=== PATIENT | male | born 1930 | race Caucasian/White ===

== ENCOUNTER 2019-06-14 11:35 | Emergency (ER) | payer MEDICARE, BC ==
--- NOTE | 2019-06-14 12:20 | EDM.PDOC ---
ED HPI GENERAL MEDICAL PROBLEM - General Chief Complaint: Gastrointestinal Problem Stated Complaint: CONSTIPATION Time Seen by Provider: 06/14/19 12:23 Source of Information: Reports: Patient, Family History Limitations: Reports: No Limitations - History of Present Illness INITIAL COMMENTS - FREE TEXT/NARRATIVE: Has not had a BM in 3 days, and unable to urinate since last night. Complains of suprapubic and rectal pain. Denies N/V. Patient has had issues with constipation in the past, but has never been associated with urinary retention. Denies N/V. Takes no narcotic pain medication. Severity: Moderate - Related Data Allergies Allergy/AdvReac Type Severity Reaction Status Date / Time erythromycin base Allergy Nausea and Verified 05/09/13 19:36 [Erythromycin Base] Vomiting Home Meds: Home Meds Acetaminophen/Diphenhydramine [Tylenol Pm Ex-Strength Caplet] 1 each PO BEDTIME PRN 05/09/13 [History] Amantadine [Symmetrel] 100 mg PO BID 05/09/13 [History] Aspirin/Calcium Carbonate/Mag [Aspirin Buffered 325 mg Tab] 325 mg PO DAILY [History] Carbidopa/Levodopa [Sinemet Cr 25-100 mg] 1 each PO TID 05/09/13 [History] Cholecalciferol (Vitamin D3) [Vitamin D3] 5,000 unit PO DAILY 05/09/13 [History] Docusate Sodium [Colace] 100 mg PO DAILY 05/09/13 [History] Glucosam/Msm/Chond/Ymc941/Hyal [Fscmflfuzra-Xqfuffxcpay-BAO] 1 each PO BID 05/09 [History] Losartan/Hydrochlorothiazide [Losartan-HCTZ 100-25 MG] 1 each PO DAILY 05/09/13 [History] Melatonin/Pyridoxine HCl (B6) [Melatonin 5 mg Tablet] 1 each PO BEDTIME [History] Multivitamin [Multivitamins] 1 each PO DAILY 05/09/13 [History] Gamaliel-3/DHA/Epa/Fish Oil [Fish Oil Dr 500 mg Softgel] 1,000 mg PO DAILY [History] Omeprazole [Prilosec] 20 mg PO BID 05/09/13 [History] Tamsulosin [Flomax] 0.4 mg PO DAILY 05/09/13 [History] polyethylene glycoL 3350 [MiraLAX] 17 gm PO DAILY 05/09/13 [History] Isosorbide Mononitrate [Imdur] 30 mg PO DAILY #30 tab.er 05/10/13 [Rx] Metoprolol Succinate [Toprol XL] 12.5 mg PO DAILY #30 tab.sr.24h 05/10/13 [Rx] Nitroglycerin [Nitrostat] 0.4 mg SL Q5M PRN #1 bottle 05/10/13 [Rx] Past Medical History Cardiovascular History: Reports: CAD, Hypertension Gastrointestinal History: Reports: GERD Genitourinary History: Reports: BPH Neurological History: Reports: Parkinson's ED ROS GENERAL - Review of Systems Review Of Systems: Comprehensive ROS is negative, except as noted in HPI. ED EXAM, GENERAL - Physical Exam Exam: See Below Exam Limited By: No Limitations General Appearance: Alert, WD/WN, No Apparent Distress Nose: Normal Inspection Neck: Full Range of Motion Respiratory/Chest: No Respiratory Distress, Lungs Clear, Normal Breath Sounds Cardiovascular: Regular Rate, Rhythm, No Murmur GI/Abdominal: Normal Bowel Sounds, Soft, No Distention, Tender (suprapubic) Rectal (Males) Exam: Fecal Impaction Extremities: Normal Range of Motion Skin Exam: Warm, Dry, Intact Course - Vital Signs Text/Narrative:: Triage Vitals: T98.7, BP 133/77, HR 102, Sa02 99% RA - Orders/Labs/Meds Orders: Active Orders 24 hr Category Date Time Status Enema [RC] ASDIRECTED Care 06/14/19 12:32 Active Gauthier Catheter Insertion [Insert Urinary Catheter] [OM. Care 06/14/19 11:45 Ordered PC] Q24H Urinary Catheter Assessment [RC] QSHIFT Care 06/14/19 11:37 Active polyethylene glycoL 3350 [MiraLAX] Med 06/14/19 13:46 Once 17 gm PO ONETIME ONE Labs: Laboratory Tests 06/14/19 06/14/19 06/14/19 Range/Units 11:52 11:52 12:47 WBC 6.9 (4.5-12.0) X10-3/uL RBC 4.85 (4.30-5.75) x10(6)uL Hgb 15.0 (13.5-17.8) g/dL Hct 45.9 (30.0-51.3) % MCV 94.7 (80-96) fL MCH 31.0 (27.7-33.6) pg MCHC 32.8 (32.2-35.4) g/dL RDW 13.1 (11.5-15.5) % Plt Count 213 (125-369) X10(3)uL MPV 7.2 L (7.4-10.4) fL Neut % (Auto) 71.5 (46-82) % Lymph % (Auto) 22.5 (13-37) % [place] % (Auto) 4.0 (4-12) % Eos % (Auto) 1 (1.0-5.0) % Baso % (Auto) 1 (0-2) % Neut # (Auto) 4.9 (1.6-8.3) # Lymph # (Auto) 1.6 (0.6-5.0) # [place] # (Auto) 0.3 (0.0-1.3) # Eos # (Auto) 0.0 (0.0-0.8) # Baso # (Auto) 0.1 (0.0-0.2) # Sodium 144 (135-145) mmol/L Potassium 3.9 (3.5-5.3) mmol/L Chloride 103 (100-110) mmol/L Carbon Dioxide 28 (21-32) mmol/L BUN 19 H (7-18) mg/dL Creatinine 1.2 (0.70-1.30) mg/dL Est Cr Clr Drug Dosing TNP Estimated GFR (MDRD) 57 L (>60) BUN/Creatinine Ratio 15.8 (9-20) Glucose 147 H (80-116) mg/dL Calcium 9.4 (8.6-10.2) mg/dL Total Bilirubin 0.9 (0.1-1.3) mg/dL AST 18 (5-25) IU/L ALT 17 (12-36) U/L Alkaline Phosphatase 63 (56-112) IU/L Total Protein 7.8 (6.0-8.0) g/dL Albumin 4.3 (3.2-4.6) g/dL Globulin 3.5 g/dL Albumin/Globulin Ratio 1.2 Urine Color Yellow (YELLOW) Urine Appearance Clear (CLEAR) Urine pH 6.0 (5.0-6.5) Ur Specific [place] 1.010 (1.010-1.025) Urine Protein Negative (NEGATIVE) mg/dL Urine Glucose (UA) Normal (NORMAL) mg/dL Urine Ketones Negative (NEGATIVE) mg/dL Urine Occult Blood Negative (NEGATIVE) Urine Nitrite Negative (NEGATIVE) Urine Bilirubin Negative (NEGATIVE) Urine Urobilinogen Normal (NEGATIVE) mg/dL Ur Leukocyte Esterase Negative (NEGATIVE) Urine RBC 0-5 (0-5) Urine WBC 0-5 (0-5) Ur Squamous Epith Cells Rare (NS,R,O) Urine Bacteria Few H (NS) - Re-Assessments/Exams Free Text/Narrative Re-Assessment/Exam: 06/14/19 13:47 700 ml urine output after Gauthier catheter placed, patient reported resolution of abdominal pain. ED RN manually disimpacted rectal stool. Soap suds enema returned liquid. Patient reports significant improvement of symptoms. Urinary retention most likely secondary to stool impaction, will d/c Gauthier, give Miralax, and discharge home. Departure - Departure Time of Disposition: 13:49 Disposition: Home, Self-Care 01 Condition: Good Clinical Impression: Impacted stool in rectum, Urinary retention - Discharge Information *PRESCRIPTION DRUG MONITORING PROGRAM REVIEWED*: No *COPY OF PRESCRIPTION DRUG MONITORING REPORT IN PATIENT KIRAN: Not Applicable Instructions: Constipation, Adult, [id number], Acute Urinary Retention, Male Referrals: Jet Yeung MD [Primary Care Provider] - 3 Days Forms: ED Department Discharge Additional Instructions: Take OTC stool softeners daily. Increase fiber intake. Follow up with your primary physician in 2-3 days. Return to the ER if symptoms worsen. Sepsis Event Note - Focused Exam Date Exam was Performed: 06/14/19 Time Exam was Performed: 13:47 - My Orders Last 24 Hours: My Active Orders 06/14/19 11:37 Urinary Catheter Assessment [RC] QSHIFT 06/14/19 11:45 Gauthier Catheter Insertion [Insert Urinary Catheter] [OM.PC] Q24H 06/14/19 12:32 Enema [RC] ASDIRECTED 06/14/19 13:46 polyethylene glycoL 3350 [MiraLAX] 17 gm PO ONETIME ONE - Assessment/Plan Last 24 Hours: My Active Orders 06/14/19 11:37 Urinary Catheter Assessment [RC] QSHIFT 06/14/19 11:45 Gauthier Catheter Insertion [Insert Urinary Catheter] [OM.PC] Q24H 06/14/19 12:32 Enema [RC] ASDIRECTED 06/14/19 13:46 polyethylene glycoL 3350 [MiraLAX] 17 gm PO ONETIME ONE
[2019-06-14] MEDS ORDERED: Polyethylene Glycol 3350 Powder 17 GM Packet PO ONE (13:46)
== END 2019-06-14 14:40 | disposition home or self-care (01) ==
LOC: FB.ED 11:35
DX: K56.41 Fecal impaction (principal); R33.9 Retention of urine, unspecified; I25.10 Atherosclerotic heart disease of native coronary artery without angina pectoris; I10 Essential (primary) hypertension; K21.9 Gastro-esophageal reflux disease without esophagitis; G20 Parkinson's disease; Z79.82 Long term (current) use of aspirin; Z88.1 Allergy status to other antibiotic agents; Z79.899 Other long term (current) drug therapy
CPT/HCPCS: 36415; 51702; 80053; 81001; 85025; 99284; A9270

== ENCOUNTER 2019-07-01 11:39 | Inpatient (IN) | payer MEDICARE, BC ==
[2019-07-01] MEDS ORDERED: Ketorolac 30 MG/ML SDV IM ONE (12:02)
[2019-07-01] MEDS ORDERED: Acetaminophen 500 MG Tab PO ONE (12:02)
--- NOTE | 2019-07-01 13:30 | EDM.PDOC ---
ED HPI GENERAL MEDICAL PROBLEM - General Chief Complaint: Back Pain or Injury Stated Complaint: BACK PAIN,GENERAL WEAKNESS Time Seen by Provider: 07/01/19 11:40 Source of Information: Reports: Patient History Limitations: Reports: No Limitations - History of Present Illness INITIAL COMMENTS - FREE TEXT/NARRATIVE: Patient presented to the ED because he tripped and fell and landed on his lower back. There is no LOC after the fall . He c/o lower back pain,7/10 and is worse with movements. - Related Data Allergies Allergy/AdvReac Type Severity Reaction Status Date / Time erythromycin base Allergy Nausea and Verified 07/01/19 12:01 [Erythromycin Base] Vomiting Home Meds: Home Meds Amantadine [Symmetrel] 100 mg PO BID 05/09/13 [History] Carbidopa/Levodopa [Sinemet Cr 25-100 mg] 1 each PO TID 05/09/13 [History] Omeprazole [Prilosec] 20 mg PO BID 05/09/13 [History] Tamsulosin [Flomax] 0.4 mg PO DAILY 05/09/13 [History] Nitroglycerin [Nitrostat] 0.4 mg SL Q5M PRN #1 bottle 05/10/13 [Rx] Cetirizine [ZyrTEC] 10 mg PO DAILY 07/01/19 [History] Losartan Potassium 100 mg PO DAILY 07/01/19 [History] Magnesium 250 mg PO DAILY 07/01/19 [History] Melatonin 10 mg PO BEDTIME 07/01/19 [History] Past Medical History Cardiovascular History: Reports: CAD, Hypertension Gastrointestinal History: Reports: GERD Genitourinary History: Reports: BPH Neurological History: Reports: Parkinson's Social & Family History - Tobacco Use Smoking Status *Q: Former Smoker Used Tobacco, but Quit: Yes Month/Year Tobacco Last Used: 1979 - Caffeine Use Caffeine Use: Reports: None - Recreational Drug Use Recreational Drug Use: No ED ROS GENERAL - Review of Systems Review Of Systems: See Below Constitutional: Reports: No Symptoms HEENT: Reports: No Symptoms Respiratory: Reports: No Symptoms Cardiovascular: Reports: No Symptoms Endocrine: Reports: No Symptoms GI/Abdominal: Reports: No Symptoms : Reports: No Symptoms Musculoskeletal: Reports: No Symptoms Skin: Reports: No Symptoms Neurological: Reports: No Symptoms ED EXAM,LOWER BACK PAIN/INJURY - Physical Exam Exam: See Below Exam Limited By: No Limitations General Appearance: Alert, No Apparent Distress Ears: Normal External Exam, Normal Canal, Hearing Grossly Normal Nose: Normal Inspection, Normal Mucosa Throat/Mouth: Normal Inspection, Normal Lips Neck: Normal Inspection, Supple, Non-Tender, Full Range of Motion Respiratory/Chest: No Respiratory Distress, Lungs Clear Cardiovascular: Normal Peripheral Pulses, Regular Rate, Rhythm, No Edema, No Gallop, No JVD GI/Abdominal: Normal Bowel Sounds, Soft, Non-Tender Back Exam: Normal Inspection, Muscle Spasm, Paraspinal Tenderness Extremities: Normal Inspection, Other (tndersness over the lumbar spine with muscle spasm) Neurological: Alert, Normal Mood/Affect Course - Vital Signs Text/Narrative:: xray lumbar-neg toradol 30 mg IM tylenol 1000 mg po x1 We did try to ambulate patient on the hallway but he can only make a few steps Last Recorded V/S: Last Vital Signs Temp 36.9 C 07/01/19 11:40 Pulse 57 L 07/01/19 11:40 Resp 20 07/01/19 11:40 BP 151/80 H 07/01/19 11:40 Pulse Ox 98 07/01/19 11:40 - Orders/Labs/Meds Orders: Active Orders 24 hr Category Date Time Status Admission Status [Patient Status] [ADT] Routine ADT 07/01/19 13:49 Ordered Lumbar Spine 2 or 3V [CR] Stat Exams 07/01/19 12:01 Taken Labs: Laboratory Tests 07/01/19 07/01/19 07/01/19 Range/Units 12:01 12:11 12:11 WBC 6.5 (4.5-12.0) X10-3/uL RBC 4.40 (4.30-5.75) x10(6)uL Hgb 13.7 (13.5-17.8) g/dL Hct 41.8 (30.0-51.3) % MCV 95.1 (80-96) fL MCH 31.2 (27.7-33.6) pg MCHC 32.8 (32.2-35.4) g/dL RDW 13.0 (11.5-15.5) % Plt Count 194 (125-369) X10(3)uL MPV 7.2 L (7.4-10.4) fL Neut % (Auto) 76.2 (46-82) % Lymph % (Auto) 14.3 (13-37) % [place] % (Auto) 6.6 (4-12) % Eos % (Auto) 1 (1.0-5.0) % Baso % (Auto) 2 (0-2) % Neut # (Auto) 5.0 (1.6-8.3) # Lymph # (Auto) 0.9 (0.6-5.0) # [place] # (Auto) 0.4 (0.0-1.3) # Eos # (Auto) 0.1 (0.0-0.8) # Baso # (Auto) 0.1 (0.0-0.2) # Sodium 146 H (135-145) mmol/L Potassium 3.8 (3.5-5.3) mmol/L Chloride 108 D (100-110) mmol/L Carbon Dioxide 29 (21-32) mmol/L BUN 18 (7-18) mg/dL Creatinine 1.0 (0.70-1.30) mg/dL Est Cr Clr Drug Dosing 50.35 mL/min Estimated GFR (MDRD) > 60 (>60) BUN/Creatinine Ratio 18.0 (9-20) Glucose 98 (80-116) mg/dL Calcium 8.5 L (8.6-10.2) mg/dL Urine Color Yellow (YELLOW) Urine Appearance Clear (CLEAR) Urine pH 7.0 H (5.0-6.5) Ur Specific [place] 1.015 (1.010-1.025) Urine Protein Negative (NEGATIVE) mg/dL Urine Glucose (UA) Normal (NORMAL) mg/dL Urine Ketones Negative (NEGATIVE) mg/dL Urine Occult Blood Negative (NEGATIVE) Urine Nitrite Negative (NEGATIVE) Urine Bilirubin Negative (NEGATIVE) Urine Urobilinogen 1 H (NEGATIVE) mg/dL Ur Leukocyte Esterase Negative (NEGATIVE) Urine RBC 0-5 (0-5) Urine WBC 0-5 (0-5) Ur Squamous Epith Cells Rare (NS,R,O) Urine Bacteria Few H (NS) Urine Mucus Many H (NS) Meds: Medications Discontinued Medications Generic Name Dose Route Start Last Admin Trade Name Freq PRN Reason Stop Dose Admin Acetaminophen 1,000 mg 07/01/19 12:02 07/01/19 12:10 Tylenol Extra Strength PO 07/01/19 12:03 1,000 mg ONETIME ONE Administration Ketorolac Tromethamine 30 mg 07/01/19 12:02 07/01/19 12:09 Toradol IM 07/01/19 12:03 30 mg ONETIME ONE Administration Departure - Departure Time of Disposition: 13:50 Disposition: Refer to Observation Condition: Good Clinical Impression: Lumbar spine strain - Discharge Information Instructions: Lumbar Sprain Referrals: Jet Yeung MD [Primary Care Provider] - Forms: ED Department Discharge Sepsis Event Note - Evaluation Sepsis Screening Result: No Definite Risk - Focused Exam Vital Signs: Vital Signs Temp Pulse Resp BP Pulse Ox 07/01/19 11:40 36.9 C 57 L 20 151/80 H 98 Date Exam was Performed: 07/01/19 Time Exam was Performed: 13:54 - My Orders Last 24 Hours: My Active Orders 07/01/19 12:01 Lumbar Spine 2 or 3V [CR] Stat 07/01/19 13:49 Admission Status [Patient Status] [ADT] Routine - Assessment/Plan Last 24 Hours: My Active Orders 07/01/19 12:01 Lumbar Spine 2 or 3V [CR] Stat 07/01/19 13:49 Admission Status [Patient Status] [ADT] Routine
--- NOTE | 2019-07-01 14:00 | CR ---
INDICATION: Fall, low back pain, slid from chair to floor LUMBOSACRAL SPINE: Three views of the lumbosacral spine revealed a tilt of the spine to the right centered at L3-4. Degenerative hypertrophic changes are noted at all levels to varying degrees but mostly moderate. Degenerative disk disease is noted at L1-2, L2-3, L4-5 and L5-S1, most severe at L4-5, L5-S1 with vacuum disk phenomenon noted at L5- S1. 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 Vertebral body heights were well maintained without a definite fracture or dislocation identified. Sacroiliac joints appear to be fairly intact with minimal degenerative change. Incidentally noted were calcifications in the abdominal aorta and iliac arteries. IMPRESSION: 1. No acute fracture or dislocation identified - if occult fracture site is suspected clinically, nuclear bone imaging or a CT examination may be helpful in that regard. 2. Tilt of the spine to the right. 3. Degenerative changes and disk disease. 4. ASD. Report was called to Dr. Abad at 1325 hours. [facility]
--- NOTE | 2019-07-01 15:39 | PCM.HP.2 ---
H&P History of Present Illness - General Date of Service: 07/01/19 Admit Problem/Dx: Admission Diagnosis/Problem Admission Diagnosis/Problem Low back pain Source of Information: Patient, Family, Provider - History of Present Illness Initial Comments - Free Text/Narative: Jamel is an 89 yr old male who fell at his home yesterday landing on his back , had to crawl on his knees and his called a neighbor to help him up off the floor. His pain was worse this morning so family brought him to ER, rated pain 7/10 in ER. Received Tylenol 1000 mg oral and Ketoralac 30 mg IM which helped with pain, states its pretty good right now. ER staff attempted to ambulate patient but was shuffling gait, very stiff. Son who is present states that he has been having small falls more frequently lately but no injuries from these. Jamel and his are now interested in going to Assisted Living due to their declining health. Lower Back Pain Score (Numeric/FACES): 2 - Related Data Allergies/Adverse Reactions: Allergies Allergy/AdvReac Type Severity Reaction Status Date / Time erythromycin base Allergy Nausea and Verified 07/01/19 12:01 [Erythromycin Base] Vomiting Home Medications: Home Meds Tamsulosin [Flomax] 0.4 mg PO DAILY 05/09/13 [History] Aspirin [Halfprin] 81 mg PO DAILY 07/01/19 [History] Carbidopa/Levodopa [Sinemet 25-100 mg Tablet] 3 tab PO BID 07/01/19 [History] Cetirizine HCl [Zyrtec] 10 mg PO DAILY 07/01/19 [History] Cholecalciferol (Vitamin D3) [Vitamin D3] 1 tab PO DAILY 07/01/19 [History] Docusate Sodium 1 cap PO DAILY 07/01/19 [History] Losartan Potassium 100 mg PO DAILY 07/01/19 [History] Multivitamin [One Daily Multivitamin] 1 each PO DAILY 07/01/19 [History] [place]-3/DHA/Epa/Fish Oil [[place]-3 Fish Oil 1,000 MG Sfgl] 1 cap PO DAILY [History] polyethylene glycoL 3350 [MiraLAX] 17 gm PO DAILY 07/01/19 [History] Past Medical History HEENT History: Reports: Macular Degeneration Cardiovascular History: Reports: CAD, Hypertension, SOB on Exertion Respiratory History: Reports: SOB Gastrointestinal History: Reports: Chronic Constipation, GERD Genitourinary History: Reports: BPH, Prostate Disorder, Renal Calculus Musculoskeletal History: Reports: Arthritis Neurological History: Reports: Parkinson's Psychiatric History: Reports: None Endocrine/Metabolic History: Reports: None Hematologic History: Reports: None Dermatologic History: Reports: None - Infectious Disease History Infectious Disease History: Reports: Mumps, Shingles - Past Surgical History HEENT Surgical History: Reports: Cataract Surgery, Tonsillectomy Cardiovascular Surgical History: Reports: None Respiratory Surgical History: Reports: None GI Surgical History: Reports: Colonoscopy, Hernia, Inguinal Male Surgical History: Reports: Renal Calculus Endocrine Surgical History: Reports: None Neurological Surgical History: Reports: None Musculoskeletal Surgical History: Reports: None Dermatological Surgical History: Reports: None Social & Family History - Family History Family Medical History: Noncontributory - Tobacco Use Smoking Status *Q: Former Smoker Years of Tobacco use: 30 Packs/Tins Daily: 2 Used Tobacco, but Quit: Yes Month/Year Tobacco Last Used: july 1982 Second Hand Smoke Exposure: No - Caffeine Use Caffeine Use: Reports: Coffee, Soda - Recreational Drug Use Recreational Drug Use: No H&P Review of Systems - Review of Systems: Review Of Systems: See Below General: Reports: No Symptoms HEENT: Reports: No Symptoms Pulmonary: Reports: No Symptoms Cardiovascular: Reports: No Symptoms Gastrointestinal: Reports: No Symptoms Genitourinary: Reports: No Symptoms Musculoskeletal: Reports: Back Pain. Denies: Leg Pain Skin: Denies: Bruising Neurological: Reports: No Symptoms Exam - Exam Exam: See Below - Vital Signs Vital Signs: Last Vital Signs Temp 98.4 F 07/01/19 11:40 Pulse 58 L 07/01/19 13:40 Resp 18 07/01/19 13:40 BP 117/75 07/01/19 13:40 Pulse Ox 98 07/01/19 13:40 Weight: 165 lb - Exam General: Alert, Oriented, Cooperative. No: Mild Distress HEENT: PERRLA, Conjunctiva Clear, EOMI, Mucosa Moist & [place], Nares Patent, Normal Nasal Septum, Posterior Pharynx Clear, Other (TMs obscured by cerumen) Neck: Supple, Trachea Midline. No: Lymphadenopathy Lungs: Clear to Auscultation, Normal Respiratory Effort Cardiovascular: Regular Rate, Regular Rhythm GI/Abdominal Exam: Normal Bowel Sounds, Soft, Non-Tender, No Distention (Male) Exam: Other (Scrotum purple color, appears bruised but denies pain). No: Scrotal Swelling Rectal (Males) Exam: Deferred Back Exam: Normal Inspection, Decreased Range of Motion, Paraspinal Tenderness. No: CVA Tenderness (R), CVA Tenderness (L), Vertebral Tenderness Extremities: No Pedal Edema Peripheral Pulses: 1+: Posterior Tibial (L), Posterior Tibial (R), Dorsalis Pedis (L), Dorsalis Pedis (R), 2+: Radial (L), Radial (R) Skin: Warm, Dry, Cool (feet), Other (abrasions to bilateral knees) Neurological: Cranial Nerves Intact, Normal Speech, Abnormal Gait (shuffling gait) - Patient Data Lab Results Last 24 hrs: Laboratory Results - last 24 hr 07/01/19 07/01/19 07/01/19 Range/Units 12:01 12:11 12:11 WBC 6.5 (4.5-12.0) X10-3/uL RBC 4.40 (4.30-5.75) x10(6)uL Hgb 13.7 (13.5-17.8) g/dL Hct 41.8 (30.0-51.3) % MCV 95.1 (80-96) fL MCH 31.2 (27.7-33.6) pg MCHC 32.8 (32.2-35.4) g/dL RDW 13.0 (11.5-15.5) % Plt Count 194 (125-369) X10(3)uL MPV 7.2 L (7.4-10.4) fL Neut % (Auto) 76.2 (46-82) % Lymph % (Auto) 14.3 (13-37) % [place] % (Auto) 6.6 (4-12) % Eos % (Auto) 1 (1.0-5.0) % Baso % (Auto) 2 (0-2) % Neut # (Auto) 5.0 (1.6-8.3) # Lymph # (Auto) 0.9 (0.6-5.0) # [place] # (Auto) 0.4 (0.0-1.3) # Eos # (Auto) 0.1 (0.0-0.8) # Baso # (Auto) 0.1 (0.0-0.2) # Sodium 146 H (135-145) mmol/L Potassium 3.8 (3.5-5.3) mmol/L Chloride 108 D (100-110) mmol/L Carbon Dioxide 29 (21-32) mmol/L BUN 18 (7-18) mg/dL Creatinine 1.0 (0.70-1.30) mg/dL Est Cr Clr Drug Dosing 50.35 mL/min Estimated GFR (MDRD) > 60 (>60) BUN/Creatinine Ratio 18.0 (9-20) Glucose 98 (80-116) mg/dL Calcium 8.5 L (8.6-10.2) mg/dL Urine Color Yellow (YELLOW) Urine Appearance Clear (CLEAR) Urine pH 7.0 H (5.0-6.5) Ur Specific [place] 1.015 (1.010-1.025) Urine Protein Negative (NEGATIVE) mg/dL Urine Glucose (UA) Normal (NORMAL) mg/dL Urine Ketones Negative (NEGATIVE) mg/dL Urine Occult Blood Negative (NEGATIVE) Urine Nitrite Negative (NEGATIVE) Urine Bilirubin Negative (NEGATIVE) Urine Urobilinogen 1 H (NEGATIVE) mg/dL Ur Leukocyte Esterase Negative (NEGATIVE) Urine RBC 0-5 (0-5) Urine WBC 0-5 (0-5) Ur Squamous Epith Cells Rare (NS,R,O) Urine Bacteria Few H (NS) Urine Mucus Many H (NS) Result Diagrams: 07/01/19 12:11 07/01/19 12:11 Imaging Impressions Last 24 hrs: L-Spine X-ray: No acute fractures, degenerative changes throughout lumbar spine. Sepsis Event Note - Evaluation Sepsis Screening Result: No Definite Risk - Focused Exam Vital Signs: Vital Signs Temp Pulse Resp BP Pulse Ox 07/01/19 13:40 58 L 18 117/75 98 07/01/19 11:40 98.4 F 57 L 20 151/80 H 98 Date Exam was Performed: 07/01/19 Time Exam was Performed: 15:44 - Problem List (1) Fall SNOMED Code(s): 8016852, 003709803 ICD Code: W19.XXXA - UNSPECIFIED FALL, INITIAL ENCOUNTER Status: Acute Current Visit: Yes (2) Lumbar spine strain SNOMED Code(s): 199542542 ICD Code: S39.012A - STRAIN OF MUSCLE, FASCIA AND TENDON OF LOWER BACK, INIT Status: Acute Current Visit: Yes (3) Physical deconditioning SNOMED Code(s): 36337401116408 ICD Code: R53.81 - OTHER MALAISE Status: Chronic Current Visit: Yes (4) BPH (benign prostatic hyperplasia) SNOMED Code(s): 180350679 ICD Code: N40.0 - BENIGN PROSTATIC HYPERPLASIA WITHOUT LOWER URINRY TRACT SYMP Status: Chronic Current Visit: Yes (5) Constipation SNOMED Code(s): 57806512 ICD Code: K59.00 - CONSTIPATION, UNSPECIFIED Status: Chronic Current Visit: Yes (6) Hypertension SNOMED Code(s): 47812812 ICD Code: I10 - ESSENTIAL (PRIMARY) HYPERTENSION Status: Chronic Current Visit: Yes (7) Parkinson disease SNOMED Code(s): 35901658 ICD Code: G20 - PARKINSON'S DISEASE Status: Chronic Current Visit: Yes Problem List Initiated/Reviewed/Updated: Yes Orders Last 24hrs: Active Orders 24 hr Category Date Time Status Admission Status [Patient Status] [ADT] Routine ADT 07/01/19 13:49 Active Ambulate [RC] PER UNIT ROUTINE Care 07/01/19 15:09 Active Ambulate [RC] PER UNIT ROUTINE Care 07/01/19 15:09 Inactive Antiembolic Devices [RC] .Routine Care 07/01/19 15:09 Active Cooling Warming Measures [RC] ASDIRECTED Care 07/01/19 15:17 Active Pulse Oximetry [RC] PRN Care 07/01/19 15:09 Active Up to Chair [RC] ASDIRECTED Care 07/01/19 15:09 Active VTE/DVT Education [RC] Click to Edit Care 07/01/19 15:09 Active Vital Signs [RC] Q4H Care 07/01/19 15:09 Active OT Evaluation and Treatment [CONS] Routine Cons 07/01/19 15:18 Active PT Evaluation and Treatment [CONS] Routine Cons 07/01/19 15:18 Active Regular Diet [DIET] Diet 07/01/19 Dinner Active BASIC METABOLIC PANEL,BMP [CHEM] Routine Lab 07/02/19 06:00 Ordered Acetaminophen [Tylenol] Med 07/01/19 15:09 Active 650 mg PO Q4H PRN Aspirin [Halfprin] Med 07/02/19 09:00 Ordered 81 mg PO DAILY Carbidopa/Levodopa [Sinemet 25-100 mg] Med 07/01/19 21:00 Ordered 3 tab PO BID Cetirizine HCl [Zyrtec] Med 07/02/19 09:00 Ordered 10 mg PO DAILY Docusate Sodium [Colace] Med 07/02/19 09:00 Ordered DOSE mg PO DAILY Ketorolac [Toradol] Med 07/01/19 20:00 Active 15 mg IM Q8H PRN Losartan [Cozaar] Med 07/02/19 09:00 Ordered 100 mg PO DAILY Multivitamins [Tab-A-Taylor] Med 07/02/19 09:00 Ordered DOSE tab PO DAILY Tamsulosin [Flomax] Med 07/02/19 09:00 Ordered 0.4 mg PO DAILY polyethylene glycoL 3350 [MiraLAX] Med 07/02/19 09:00 Ordered 17 gm PO DAILY Antiembolic Hose [OM.PC] Routine Oth 07/01/19 15:09 Ordered DVT/VTE Prophylaxis Reflex [OM.PC] Per Unit Routine Oth 07/01/19 15:09 Ordered Heat Therapy [OM.PC] Routine Oth 07/01/19 15:17 Ordered Resuscitation Status Routine Resus Stat 07/01/19 15:09 Ordered Medication Orders Acetaminophen (Tylenol) 650 mg PO Q4H PRN PRN Reason: analgesia/fever Aspirin (Halfprin) 81 mg PO DAILY [facility] Carbidopa/Levodopa (Sinemet 25-100 Mg) 3 tab PO BID [facility] Docusate Sodium (Colace) mg PO DAILY [facility] Ketorolac Tromethamine (Toradol) 15 mg IM Q8H PRN PRN Reason: Pain Stop: 07/06/19 20:01 Losartan Potassium (Cozaar) 100 mg PO DAILY [facility] Multivitamins/Minerals/Vitamin C (Tab-A-Taylor) tab PO DAILY [facility] Non-Formulary Medication (Cetirizine Hcl [Zyrtec]) 10 mg PO DAILY [facility] Polyethylene Glycol (Miralax) 17 gm PO DAILY [facility] Tamsulosin HCl (Flomax) 0.4 mg PO DAILY [facility] Assessment/Plan Comment:: 1. Observation admission for lumbar back pain, fall, deconditioning. 2. Tylenol 650 mg po q6h as needed, Ketoralac 15 mg IV q8h as needed. Repeat BMP in am to monitor kidney function. Warm gel pad to back 20 min on and 20 min off as needed back pain. 3. PT/OT consult for strengthening and ADLs. 4. particleboard factory worker consult for assisted living placement also like to discuss advance directives. 5. FULL CODE. - Mortality Measure Prognosis:: Poor
[2019-07-01] MEDS ORDERED: Ketorolac 60 MG/2 ML SDV IM PRN (20:00)
[2019-07-01] MEDS: Carbidopa/Levodopa 25-100 MG Tab PO SCH (20:18)
[2019-07-02] MEDS: Losartan 100 MG Tab PO SCH (08:12)
[2019-07-02] MEDS: Tamsulosin 0.4 MG Cap.ER PO SCH (08:14)
[2019-07-02] MEDS: Carbidopa/Levodopa 25-100 MG Tab PO SCH ×2 (08:15→20:21)
[2019-07-02] MEDS: Aspirin 81 MG Tab.EC PO SCH (08:15)
[2019-07-02] MEDS ORDERED: Multivitamin Tab PO SCH (09:00)
[2019-07-02] MEDS ORDERED: Cetirizine 10 MG Tab *PTOM PO SCH (09:00)
--- NOTE | 2019-07-02 09:02 | PCM.PN ---
- General Info Date of Service: 07/02/19 Subjective Update: Bandar is doing better, back is a little sore, no pain right now, just when he moves. NO fevers, chills, shortness of breath or cough. Constipated, hasn't gone in about 3 days, has issues with chronic constipation. Going to try prune juice this morning then his home medications of MiraLAX & Docusate. PT/OT to see this morning. Also encouraged to utilize heat therapy. - Patient Data Vitals - Most Recent: Last Vital Signs Temp 97.7 F 07/02/19 07:50 Pulse 84 07/02/19 07:50 Resp 16 07/02/19 07:50 BP 168/99 H 07/02/19 08:12 Pulse Ox 96 07/02/19 07:50 Weight - Most Recent: 167 lb 1.6 oz I&O - Last 24 Hours: Intake & Output 07/01/19 07/02/19 07/02/19 22:59 06:59 14:59 Output Total 250 Balance -250 Lab Results Last 24 Hours: Laboratory Results - last 24 hr 07/01/19 07/01/19 07/01/19 Range/Units 12:01 12:11 12:11 WBC 6.5 (4.5-12.0) X10-3/uL RBC 4.40 (4.30-5.75) x10(6)uL Hgb 13.7 (13.5-17.8) g/dL Hct 41.8 (30.0-51.3) % MCV 95.1 (80-96) fL MCH 31.2 (27.7-33.6) pg MCHC 32.8 (32.2-35.4) g/dL RDW 13.0 (11.5-15.5) % Plt Count 194 (125-369) X10(3)uL MPV 7.2 L (7.4-10.4) fL Neut % (Auto) 76.2 (46-82) % Lymph % (Auto) 14.3 (13-37) % [place] % (Auto) 6.6 (4-12) % Eos % (Auto) 1 (1.0-5.0) % Baso % (Auto) 2 (0-2) % Neut # (Auto) 5.0 (1.6-8.3) # Lymph # (Auto) 0.9 (0.6-5.0) # [place] # (Auto) 0.4 (0.0-1.3) # Eos # (Auto) 0.1 (0.0-0.8) # Baso # (Auto) 0.1 (0.0-0.2) # Sodium 146 H (135-145) mmol/L Potassium 3.8 (3.5-5.3) mmol/L Chloride 108 D (100-110) mmol/L Carbon Dioxide 29 (21-32) mmol/L BUN 18 (7-18) mg/dL Creatinine 1.0 (0.70-1.30) mg/dL Est Cr Clr Drug Dosing 50.35 mL/min Estimated GFR (MDRD) > 60 (>60) BUN/Creatinine Ratio 18.0 (9-20) Glucose 98 (80-116) mg/dL Calcium 8.5 L (8.6-10.2) mg/dL Urine Color Yellow (YELLOW) Urine Appearance Clear (CLEAR) Urine pH 7.0 H (5.0-6.5) Ur Specific [place] 1.015 (1.010-1.025) Urine Protein Negative (NEGATIVE) mg/dL Urine Glucose (UA) Normal (NORMAL) mg/dL Urine Ketones Negative (NEGATIVE) mg/dL Urine Occult Blood Negative (NEGATIVE) Urine Nitrite Negative (NEGATIVE) Urine Bilirubin Negative (NEGATIVE) Urine Urobilinogen 1 H (NEGATIVE) mg/dL Ur Leukocyte Esterase Negative (NEGATIVE) Urine RBC 0-5 (0-5) Urine WBC 0-5 (0-5) Ur Squamous Epith Cells Rare (NS,R,O) Urine Bacteria Few H (NS) Urine Mucus Many H (NS) 07/02/19 Range/Units 06:10 WBC (4.5-12.0) X10-3/uL RBC (4.30-5.75) x10(6)uL Hgb (13.5-17.8) g/dL Hct (30.0-51.3) % MCV (80-96) fL MCH (27.7-33.6) pg MCHC (32.2-35.4) g/dL RDW (11.5-15.5) % Plt Count (125-369) X10(3)uL MPV (7.4-10.4) fL Neut % (Auto) (46-82) % Lymph % (Auto) (13-37) % [place] % (Auto) (4-12) % Eos % (Auto) (1.0-5.0) % Baso % (Auto) (0-2) % Neut # (Auto) (1.6-8.3) # Lymph # (Auto) (0.6-5.0) # [place] # (Auto) (0.0-1.3) # Eos # (Auto) (0.0-0.8) # Baso # (Auto) (0.0-0.2) # Sodium 147 H (135-145) mmol/L Potassium 3.9 (3.5-5.3) mmol/L Chloride 109 (100-110) mmol/L Carbon Dioxide 31 (21-32) mmol/L BUN 22 H (7-18) mg/dL Creatinine 1.1 (0.70-1.30) mg/dL Est Cr Clr Drug Dosing 45.77 mL/min Estimated GFR (MDRD) > 60 (>60) BUN/Creatinine Ratio 20.0 (9-20) Glucose 97 (80-116) mg/dL Calcium 8.7 (8.6-10.2) mg/dL Urine Color (YELLOW) Urine Appearance (CLEAR) Urine pH (5.0-6.5) Ur Specific [place] (1.010-1.025) Urine Protein (NEGATIVE) mg/dL Urine Glucose (UA) (NORMAL) mg/dL Urine Ketones (NEGATIVE) mg/dL Urine Occult Blood (NEGATIVE) Urine Nitrite (NEGATIVE) Urine Bilirubin (NEGATIVE) Urine Urobilinogen (NEGATIVE) mg/dL Ur Leukocyte Esterase (NEGATIVE) Urine RBC (0-5) Urine WBC (0-5) Ur Squamous Epith Cells (NS,R,O) Urine Bacteria (NS) Urine Mucus (NS) Med Orders - Current: Current Medications Acetaminophen (Tylenol) 650 mg PO Q4H PRN PRN Reason: analgesia/fever Aspirin (Halfprin) 81 mg PO DAILY [facility] Last Admin: 07/02/19 08:15 Dose: 81 mg Carbidopa/Levodopa (Sinemet 25-100 Mg) 3 tab PO BID [facility] Last Admin: 07/02/19 08:15 Dose: 3 tab Cetirizine HCl (Zyrtec) 10 mg PO DAILY [facility] Last Admin: 07/02/19 08:15 Dose: 10 mg Docusate Sodium (Colace) 100 mg PO DAILY [facility] Ketorolac Tromethamine (Toradol) 15 mg IM Q8H PRN PRN Reason: Pain Stop: 07/06/19 20:01 Losartan Potassium (Cozaar) 100 mg PO DAILY [facility] Last Admin: 07/02/19 08:12 Dose: 100 mg Multivitamins/Minerals/Vitamin C (Tab-A-Taylor) 1 tab PO DAILY [facility] Polyethylene Glycol (Miralax) 17 gm PO DAILY [facility] Tamsulosin HCl (Flomax) 0.4 mg PO DAILY [facility] Last Admin: 07/02/19 08:14 Dose: 0.4 mg Discontinued Medications Acetaminophen (Tylenol Extra Strength) 1,000 mg PO ONETIME ONE Stop: 07/01/19 12:03 Last Admin: 07/01/19 12:10 Dose: 1,000 mg Ketorolac Tromethamine (Toradol) 30 mg IM ONETIME ONE Stop: 07/01/19 12:03 Last Admin: 07/01/19 12:09 Dose: 30 mg - Exam General: Alert, Oriented, Cooperative, No Acute Distress Lungs: Clear to Auscultation, Normal Respiratory Effort Cardiovascular: Regular Rate, Regular Rhythm GI/Abdominal Exam: Normal Bowel Sounds, Soft, Non-Tender, No Distention Back Exam: Paraspinal Tenderness (mild). No: Vertebral Tenderness Peripheral Pulses: 2+: Radial (L), Radial (R) Skin: Warm, Dry, Intact Sepsis Event Note - Evaluation Sepsis Screening Result: No Definite Risk - Focused Exam Vital Signs: Vital Signs Temp Pulse Resp BP BP Pulse Ox 07/02/19 08:12 168/99 H 07/02/19 07:50 97.7 F 84 16 168/99 H 96 07/02/19 03:35 97.8 F 81 18 159/95 H 96 07/01/19 23:45 97.7 F 66 16 153/83 H 95 Date Exam was Performed: 07/02/19 Time Exam was Performed: 08:58 - Problem List & Annotations (1) Fall SNOMED Code(s): 6115132, 694563580 Code(s): W19.XXXA - UNSPECIFIED FALL, INITIAL ENCOUNTER Status: Acute Current Visit: Yes (2) Lumbar spine strain SNOMED Code(s): 219176678 Code(s): S39.012A - STRAIN OF MUSCLE, FASCIA AND TENDON OF LOWER BACK, INIT Status: Acute Current Visit: Yes (3) Physical deconditioning SNOMED Code(s): 92900434222508 Code(s): R53.81 - OTHER MALAISE Status: Chronic Current Visit: Yes (4) BPH (benign prostatic hyperplasia) SNOMED Code(s): 038932140 Code(s): N40.0 - BENIGN PROSTATIC HYPERPLASIA WITHOUT LOWER URINRY TRACT SYMP Status: Chronic Current Visit: Yes (5) Constipation SNOMED Code(s): 33172643 Code(s): K59.00 - CONSTIPATION, UNSPECIFIED Status: Chronic Current Visit : Yes (6) Hypertension SNOMED Code(s): 48870564 Code(s): I10 - ESSENTIAL (PRIMARY) HYPERTENSION Status: Chronic Current Visit: Yes (7) Parkinson disease SNOMED Code(s): 28696401 Code(s): G20 - PARKINSON'S DISEASE Status: Chronic Current Visit: Yes - Problem List Review Problem List Initiated/Reviewed/Updated: Yes - My Orders Last 24 Hours: My Active Orders 07/01/19 15:09 Ambulate [RC] PER UNIT ROUTINE Ambulate [RC] PER UNIT ROUTINE Antiembolic Devices [RC] .Routine Pulse Oximetry [RC] PRN Up to Chair [RC] ASDIRECTED VTE/DVT Education [RC] Click to Edit Vital Signs [RC] 00,04,08,12,16,20 Acetaminophen [Tylenol] 650 mg PO Q4H PRN Antiembolic Hose [OM.PC] Routine DVT/VTE Prophylaxis Reflex [OM.PC] Per Unit Routine Resuscitation Status Routine 07/01/19 15:17 Cooling Warming Measures [RC] ASDIRECTED Heat Therapy [OM.PC] Routine 07/01/19 15:18 OT Evaluation and Treatment [CONS] Routine PT Evaluation and Treatment [CONS] Routine 07/01/19 20:00 Ketorolac [Toradol] 15 mg IM Q8H PRN 07/01/19 21:00 Carbidopa/Levodopa [Sinemet 25-100 mg] 3 tab PO BID 07/01/19 Dinner Regular Diet [DIET] 07/02/19 09:00 Aspirin [Halfprin] 81 mg PO DAILY Cetirizine [ZyrTEC] 10 mg PO DAILY Docusate Sodium [Colace] 100 mg PO DAILY Losartan [Cozaar] 100 mg PO DAILY Multivitamins [Tab-A-Taylor] 1 tab PO DAILY Tamsulosin [Flomax] 0.4 mg PO DAILY polyethylene glycoL 3350 [MiraLAX] 17 gm PO DAILY - Plan Plan:: 1. Observation admission for lumbar back pain, fall, deconditioning. 2. Tylenol 650 mg po q6h as needed, Ketoralac 15 mg IV q8h as needed. Did not take anything for pain overnight. BMP normal this morning. Warm gel pad to back 20 min on and 20 min off as needed back pain. 3. PT/OT consult for strengthening and ADLs. 4. acetone recovery worker consult for assisted living placement also like to discuss advance directives.
[2019-07-02] MEDS: Acetaminophen 325 MG Tab PO PRN ×2 (10:46→20:24)
[2019-07-02] MEDS: Polyethylene Glycol 3350 Powder 17 GM Packet PO SCH (10:46)
[2019-07-02] MEDS: Docusate Sodium 100 MG Cap PO SCH (10:46)
--- NOTE | 2019-07-03 08:48 | PCM.PN ---
- General Info Date of Service: 07/03/19 Subjective Update: Bandar states his back is not hurting him now. Had 2 doses of Tylenol yesterday. PT/OT both recommended swing bed placement for strengthening and ADLs as he is not a safe discharge at this time to the [facility](he would be a new admission) . Denies any fevers, chills, shortness of breath. No nausea, or vomiting. No bowel movements yet. - Patient Data Vitals - Most Recent: Last Vital Signs Temp 97.3 F 07/02/19 23:50 Pulse 73 07/02/19 23:50 Resp 18 07/02/19 23:50 BP 159/90 H 07/02/19 23:50 Pulse Ox 97 07/02/19 23:50 Weight - Most Recent: 167 lb 1.6 oz Med Orders - Current: Current Medications Acetaminophen (Tylenol) 650 mg PO Q4H PRN PRN Reason: analgesia/fever Last Admin: 07/02/19 20:24 Dose: 650 mg Aspirin (Halfprin) 81 mg PO DAILY [facility] Last Admin: 07/02/19 08:15 Dose: 81 mg Carbidopa/Levodopa (Sinemet 25-100 Mg) 3 tab PO BID [facility] Last Admin: 07/02/19 20:21 Dose: 3 tab Cetirizine HCl (Zyrtec) 10 mg PO DAILY [facility] Docusate Sodium (Colace) 100 mg PO DAILY [facility] Last Admin: 07/02/19 10:46 Dose: 100 mg Ketorolac Tromethamine (Toradol) 15 mg IM Q8H PRN PRN Reason: Pain Stop: 07/06/19 20:01 Losartan Potassium (Cozaar) 100 mg PO DAILY [facility] Last Admin: 07/02/19 08:12 Dose: 100 mg Multivitamins/Minerals/Vitamin C (Tab-A-Taylor) 1 tab PO DAILY [facility] Polyethylene Glycol (Miralax) 17 gm PO DAILY [facility] Last Admin: 07/02/19 10:46 Dose: 17 gm Tamsulosin HCl (Flomax) 0.4 mg PO DAILY [facility] Last Admin: 07/02/19 08:14 Dose: 0.4 mg Discontinued Medications Acetaminophen (Tylenol Extra Strength) 1,000 mg PO ONETIME ONE Stop: 07/01/19 12:03 Last Admin: 07/01/19 12:10 Dose: 1,000 mg Cetirizine HCl (Zyrtec) 10 mg PO DAILY [facility] Last Admin: 07/02/19 08:15 Dose: 10 mg Ketorolac Tromethamine (Toradol) 30 mg IM ONETIME ONE Stop: 07/01/19 12:03 Last Admin: 07/01/19 12:09 Dose: 30 mg - Exam General: Alert, Oriented (person, place; doesn't remember seeing PT/OT yesterday.), Cooperative, No Acute Distress Lungs: Clear to Auscultation, Normal Respiratory Effort Cardiovascular: Regular Rate, Regular Rhythm GI/Abdominal Exam: Normal Bowel Sounds, Soft, Non-Tender, No Distention Extremities: No Pedal Edema Peripheral Pulses: 2+: Radial (L), Radial (R) Neurological: Normal Speech, Other (resting tremor) Sepsis Event Note - Evaluation Sepsis Screening Result: No Definite Risk - Focused Exam Vital Signs: Vital Signs Temp Pulse Resp BP Pulse Ox 07/02/19 23:50 97.3 F 73 18 159/90 H 97 Date Exam was Performed: 07/03/19 Time Exam was Performed: 08:42 - Problem List & Annotations (1) Fall SNOMED Code(s): 0525272, 307853004 Code(s): W19.XXXA - UNSPECIFIED FALL, INITIAL ENCOUNTER Status: Acute Current Visit: Yes (2) Lumbar spine strain SNOMED Code(s): 657185838 Code(s): S39.012A - STRAIN OF MUSCLE, FASCIA AND TENDON OF LOWER BACK, INIT Status: Acute Current Visit: Yes (3) Physical deconditioning SNOMED Code(s): 90974701255466 Code(s): R53.81 - OTHER MALAISE Status: Chronic Current Visit: Yes (4) BPH (benign prostatic hyperplasia) SNOMED Code(s): 978226952 Code(s): N40.0 - BENIGN PROSTATIC HYPERPLASIA WITHOUT LOWER URINRY TRACT SYMP Status: Chronic Current Visit: Yes (5) Constipation SNOMED Code(s): 47682489 Code(s): K59.00 - CONSTIPATION, UNSPECIFIED Status: Chronic Current Visit : Yes (6) Hypertension SNOMED Code(s): 26200937 Code(s): I10 - ESSENTIAL (PRIMARY) HYPERTENSION Status: Chronic Current Visit: Yes (7) Parkinson disease SNOMED Code(s): 74633491 Code(s): G20 - PARKINSON'S DISEASE Status: Chronic Current Visit: Yes - Problem List Review Problem List Initiated/Reviewed/Updated: Yes - My Orders Last 24 Hours: My Active Orders 07/02/19 09:00 Aspirin [Halfprin] 81 mg PO DAILY Docusate Sodium [Colace] 100 mg PO DAILY Losartan [Cozaar] 100 mg PO DAILY Multivitamins [Tab-A-Taylor] 1 tab PO DAILY Tamsulosin [Flomax] 0.4 mg PO DAILY polyethylene glycoL 3350 [MiraLAX] 17 gm PO DAILY 07/02/19 10:13 Patient Status [ADT] Routine 07/03/19 09:00 Cetirizine [ZyrTEC] 10 mg PO DAILY - Plan Plan:: 1. Switched to inpatient yesterday:lumbar back pain, fall, deconditioning for PT /OT for strengthening and ADLs. 2. Tylenol 650 mg po q6h as needed. Discontinue Toradol, has not used. Warm gel pad to back 20 min on and 20 min off as needed back pain. 3. Constipation: MiraLAX, Docusate daily. Warm prune juice and butter daily as needed. 4. Thelma is working on discharge planning, once he is able he will be transferred to swing bed for continued PT/OT, anticipate discharge to [facility].
[2019-07-03] MEDS: Tamsulosin 0.4 MG Cap.ER PO SCH (08:52)
[2019-07-03] MEDS: Docusate Sodium 100 MG Cap PO SCH (08:52)
[2019-07-03] MEDS: Losartan 100 MG Tab PO SCH (08:52)
[2019-07-03] MEDS: Polyethylene Glycol 3350 Powder 17 GM Packet PO SCH (08:53)
[2019-07-03] MEDS: Carbidopa/Levodopa 25-100 MG Tab PO SCH (08:53)
[2019-07-03] MEDS: Aspirin 81 MG Tab.EC PO SCH (08:53)
[2019-07-03] MEDS ORDERED: Cetirizine 10 MG Tab PO SCH (09:00)
[2019-07-03] MEDS ORDERED: Carbidopa/Levodopa 25-100 MG Tab PO SCH (10:00)
--- NOTE | 2019-07-03 16:36 | PCM.DCSUM1 ---
Discharge Summary - Hospital Course HPI Initial Comments: Jamel is an 89 yr old male who fell at his home yesterday landing on his back , had to crawl on his knees and his called a neighbor to help him up off the floor. His pain was worse this morning so family brought him to ER, rated pain 7/10 in ER. Received Tylenol 1000 mg oral and Ketoralac 30 mg IM which helped with pain, states its pretty good right now. ER staff attempted to ambulate patient but was shuffling gait, very stiff. Son who is present states that he has been having small falls more frequently lately but no injuries from these. Jamel and his are now interested in going to Assisted Living due to their declining health. Diagnosis: Stroke: No - Discharge Data Discharge Date: 07/03/19 Discharge Disposition: DC/Tfer W/I Hosp To Swing 61 Condition: Good - Referral to Home Health Primary Care Physician: Jet Yeung MD - Discharge Diagnosis/Problem(s) (1) Fall SNOMED Code(s): 6057120, 412258215 ICD Code: W19.XXXA - UNSPECIFIED FALL, INITIAL ENCOUNTER Status: Acute Current Visit: Yes (2) Lumbar spine strain SNOMED Code(s): 159963487 ICD Code: S39.012A - STRAIN OF MUSCLE, FASCIA AND TENDON OF LOWER BACK, INIT Status: Acute Current Visit: Yes (3) Physical deconditioning SNOMED Code(s): 06541498711424 ICD Code: R53.81 - OTHER MALAISE Status: Chronic Current Visit: Yes (4) BPH (benign prostatic hyperplasia) SNOMED Code(s): 787122556 ICD Code: N40.0 - BENIGN PROSTATIC HYPERPLASIA WITHOUT LOWER URINRY TRACT SYMP Status: Chronic Current Visit: Yes (5) Constipation SNOMED Code(s): 12068463 ICD Code: K59.00 - CONSTIPATION, UNSPECIFIED Status: Chronic Current Visit: Yes (6) Hypertension SNOMED Code(s): 94509155 ICD Code: I10 - ESSENTIAL (PRIMARY) HYPERTENSION Status: Chronic Current Visit: Yes (7) Parkinson disease SNOMED Code(s): 88858788 ICD Code: G20 - PARKINSON'S DISEASE Status: Chronic Current Visit: Yes - Patient Summary/Data Consults: Consultations 07/01/19 15:18 OT Evaluation and Treatment [CONS] Routine Please Evaluate and Treat. OT Reason for Consult: ADL's This query below is only for informational purposes and is not editable. Admission Diagnosis/Problem: Low back pain PT Evaluation and Treatment [CONS] Routine Please Evaluate and Treat. PT Reason for Consult: Ambulation This query below is only for informational purposes and is not editable. Admission Diagnosis/Problem: Low back pain Hospital Course: Luis Angel was admitted for pain control and PT/OT, has not received any further Toradol since ER. He has required a few doses of Tylenol but pain controlled. BMP was normal next day after Toradol administration. PT/OT the next morning, both advised Swing bed placement as he is not a safe discharge to the [facility] , which the family had planned on at discharge. Therapies advised that he could go to Swing Bed today. - Patient Instructions Diet: Regular Diet as Tolerated Other/Special Instructions: Transfer to Swing Bed - Discharge Plan *PRESCRIPTION DRUG MONITORING PROGRAM REVIEWED*: No *COPY OF PRESCRIPTION DRUG MONITORING REPORT IN PATIENT KIRAN: No Home Medications: Home Meds Tamsulosin [Flomax] 0.4 mg PO DAILY 05/09/13 [History] Aspirin [Halfprin] 81 mg PO DAILY 07/01/19 [History] Carbidopa/Levodopa [Sinemet 25-100 mg Tablet] 3 tab PO BID 07/01/19 [History] Cetirizine HCl [Zyrtec] 10 mg PO DAILY 07/01/19 [History] Cholecalciferol (Vitamin D3) [Vitamin D3] 1 tab PO DAILY 07/01/19 [History] Docusate Sodium 1 cap PO DAILY 07/01/19 [History] Losartan Potassium 100 mg PO DAILY 07/01/19 [History] Multivitamin [One Daily Multivitamin] 1 each PO DAILY 07/01/19 [History] [place]-3/DHA/Epa/Fish Oil [[place]-3 Fish Oil 1,000 MG Sfgl] 1 cap PO DAILY [History] polyethylene glycoL 3350 [MiraLAX] 17 gm PO DAILY 07/01/19 [History] Acetaminophen [Tylenol] 650 mg PO Q4H PRN tablet 07/03/19 [Rx] Patient Handouts: Lumbar Sprain Forms: ED Department Discharge Referrals: Jet Yeung MD [Primary Care Provider] - - Discharge Summary/Plan Comment DC Time >30 min.: No - Patient Data Vitals - Most Recent: Last Vital Signs Temp 97.5 F 07/03/19 07:55 Pulse 61 07/03/19 07:55 Resp 18 07/03/19 07:55 BP 164/88 H 07/03/19 08:52 Pulse Ox 96 07/03/19 07:55 Weight - Most Recent: 167 lb 1.6 oz Med Orders - Current: Current Medications Acetaminophen (Tylenol) 650 mg PO Q4H PRN PRN Reason: analgesia/fever Last Admin: 07/02/19 20:24 Dose: 650 mg Aspirin (Halfprin) 81 mg PO DAILY [facility] Last Admin: 07/03/19 08:53 Dose: 81 mg Carbidopa/Levodopa (Sinemet 25-100 Mg) 3 tab PO BID@1000,2100 [facility] Last Admin: 07/03/19 10:12 Dose: 3 tab Cetirizine HCl (Zyrtec) 10 mg PO DAILY [facility] Last Admin: 07/03/19 08:54 Dose: 10 mg Docusate Sodium (Colace) 100 mg PO DAILY [facility] Last Admin: 07/03/19 08:52 Dose: 100 mg Losartan Potassium (Cozaar) 100 mg PO DAILY [facility] Last Admin: 07/03/19 08:52 Dose: 100 mg Multivitamins/Minerals/Vitamin C (Tab-A-Taylor) 1 tab PO DAILY [facility] Last Admin: 07/03/19 08:54 Dose: 1 tab Polyethylene Glycol (Miralax) 17 gm PO DAILY [facility] Last Admin: 07/03/19 08:53 Dose: 17 gm Tamsulosin HCl (Flomax) 0.4 mg PO DAILY [facility] Last Admin: 07/03/19 08:52 Dose: 0.4 mg Discontinued Medications Acetaminophen (Tylenol Extra Strength) 1,000 mg PO ONETIME ONE Stop: 07/01/19 12:03 Last Admin: 07/01/19 12:10 Dose: 1,000 mg Carbidopa/Levodopa (Sinemet 25-100 Mg) 3 tab PO BID [facility] Last Admin: 07/02/19 20:21 Dose: 3 tab Cetirizine HCl (Zyrtec) 10 mg PO DAILY [facility] Last Admin: 07/02/19 08:15 Dose: 10 mg Ketorolac Tromethamine (Toradol) 30 mg IM ONETIME ONE Stop: 07/01/19 12:03 Last Admin: 07/01/19 12:09 Dose: 30 mg Ketorolac Tromethamine (Toradol) 15 mg IM Q8H PRN PRN Reason: Pain Stop: 07/06/19 20:01
== END 2019-07-03 16:00 | disposition swing bed (61) | DRG 563 ==
LOC: FB.ED 11:39 → FB.MS 13:49 → OBSVTOIN 07-02 10:13
PROVIDERS: ADMIT Emergency Medicine; ATTEND Family Medicine
DX: S39.012A Strain of muscle, fascia and tendon of lower back, initial encounter (principal); R53.81 Other malaise; N40.0 Benign prostatic hyperplasia without lower urinary tract symptoms; I10 Essential (primary) hypertension; G20 Parkinson's disease; I25.10 Atherosclerotic heart disease of native coronary artery without angina pectoris; H35.30 Unspecified macular degeneration; K59.09 Other constipation; M19.90 Unspecified osteoarthritis, unspecified site; K21.9 Gastro-esophageal reflux disease without esophagitis; Z87.891 Personal history of nicotine dependence; Z87.442 Personal history of urinary calculi; Z98.49 Cataract extraction status, unspecified eye; W01.0XXA Fall on same level from slipping, tripping and stumbling without subsequent striking against object, initial encounter; Z88.1 Allergy status to other antibiotic agents; Y92.009 Unspecified place in unspecified non-institutional (private) residence as the place of occurrence of the external cause; Z79.899 Other long term (current) drug therapy; Z79.82 Long term (current) use of aspirin
CPT/HCPCS: 36415 ×2; 72100; 80048 ×2; 81001; 85025; 96372; 99285; A9270 ×7; J1885; 97110-GO; 97110-GP; 97161-GP; 97165-GO; 97530-GO; 99218; 99283; G0378

== ENCOUNTER 2019-07-03 16:00 | Inpatient (IN) | payer MEDICARE, BC ==
--- NOTE | 2019-07-03 17:13 | PCM.HP.2 ---
H&P History of Present Illness - General Date of Service: 07/03/19 Admit Problem/Dx: Admission Diagnosis/Problem Admission Diagnosis/Problem Fall Source of Information: Patient, EMS Notes Reviewed, Family, Provider - History of Present Illness Initial Comments - Free Text/Narative: ACUTE HPI: Luis Angel is an 89 yr old male who fell at his home yesterday landing on his back, had to crawl on his knees and his called a neighbor to help him up off the floor. His pain was worse this morning so family brought him to ER, rated pain 7/10 in ER. Received Tylenol 1000 mg oral and Ketoralac 30 mg IM which helped with pain, states its pretty good right now. ER staff attempted to ambulate patient but was shuffling gait, very stiff. Son who is present states that he has been having small falls more frequently lately but no injuries from these. Jamel and his are now interested in going to Assisted Living due to their declining health. Hospital course: Luis Angel was admitted for pain control and PT/OT, has not received any further Toradol since ER. He has required a few doses of Tylenol but pain controlled. BMP was normal next day after Toradol administration. PT/ OT the next morning, both advised Swing bed placement as he is not a safe discharge to the [facility], which the family had planned on at discharge. Therapies advised that he could go to Swing Bed today. - Related Data Allergies/Adverse Reactions: Allergies Allergy/AdvReac Type Severity Reaction Status Date / Time erythromycin base Allergy Nausea and Verified 07/01/19 12:01 [Erythromycin Base] Vomiting Home Medications: Home Meds Tamsulosin [Flomax] 0.4 mg PO DAILY 05/09/13 [History] Aspirin [Halfprin] 81 mg PO DAILY 07/01/19 [History] Carbidopa/Levodopa [Sinemet 25-100 mg Tablet] 3 tab PO BID 07/01/19 [History] Cetirizine HCl [Zyrtec] 10 mg PO DAILY 07/01/19 [History] Cholecalciferol (Vitamin D3) [Vitamin D3] 1 tab PO DAILY 07/01/19 [History] Docusate Sodium 1 cap PO DAILY 07/01/19 [History] Losartan Potassium 100 mg PO DAILY 07/01/19 [History] Multivitamin [One Daily Multivitamin] 1 each PO DAILY 07/01/19 [History] [place]-3/DHA/Epa/Fish Oil [[place]-3 Fish Oil 1,000 MG Sfgl] 1 cap PO DAILY [History] polyethylene glycoL 3350 [MiraLAX] 17 gm PO DAILY 07/01/19 [History] Acetaminophen [Tylenol] 650 mg PO Q4H PRN tablet 07/03/19 [Rx] Past Medical History HEENT History: Reports: Macular Degeneration Cardiovascular History: Reports: CAD, Hypertension, SOB on Exertion Respiratory History: Reports: SOB Gastrointestinal History: Reports: Chronic Constipation, GERD Genitourinary History: Reports: BPH, Prostate Disorder, Renal Calculus Musculoskeletal History: Reports: Arthritis Neurological History: Reports: Parkinson's Psychiatric History: Reports: None Endocrine/Metabolic History: Reports: None Hematologic History: Reports: None Dermatologic History: Reports: None - Infectious Disease History Infectious Disease History: Reports: Mumps, Shingles - Past Surgical History HEENT Surgical History: Reports: Cataract Surgery, Tonsillectomy Cardiovascular Surgical History: Reports: None Respiratory Surgical History: Reports: None GI Surgical History: Reports: Colonoscopy, Hernia, Inguinal Male Surgical History: Reports: Renal Calculus Endocrine Surgical History: Reports: None Neurological Surgical History: Reports: None Musculoskeletal Surgical History: Reports: None Dermatological Surgical History: Reports: None Social & Family History - Family History Family Medical History: Noncontributory - Caffeine Use Caffeine Use: Reports: Coffee, Soda H&P Review of Systems - Review of Systems: Review Of Systems: See Below HEENT: Reports: No Symptoms Pulmonary: Reports: No Symptoms Cardiovascular: Reports: No Symptoms Gastrointestinal: Reports: No Symptoms Genitourinary: Reports: No Symptoms Musculoskeletal: Reports: Back Pain (improved), Muscle Stiffness Neurological: Reports: Gait Disturbance Exam - Exam Exam: See Below - Exam General: Alert, Oriented (person & place), Cooperative. No: Mild Distress Lungs: Clear to Auscultation, Normal Respiratory Effort Cardiovascular: Regular Rate, Regular Rhythm GI/Abdominal Exam: Normal Bowel Sounds, Soft, Non-Tender, No Distention Back Exam: Paraspinal Tenderness (mild). No: Vertebral Tenderness Extremities: No Pedal Edema - Problem List (1) Physical deconditioning SNOMED Code(s): 20009970198784 ICD Code: R53.81 - OTHER MALAISE Status: Chronic Current Visit: No (2) Fall SNOMED Code(s): 3545283, 996155416 ICD Code: W19.XXXA - UNSPECIFIED FALL, INITIAL ENCOUNTER Status: Acute Current Visit: No (3) Lumbar spine strain SNOMED Code(s): 840924029 ICD Code: S39.012A - STRAIN OF MUSCLE, FASCIA AND TENDON OF LOWER BACK, INIT Status: Acute Current Visit: No (4) Constipation SNOMED Code(s): 75162778 ICD Code: K59.00 - CONSTIPATION, UNSPECIFIED Status: Chronic Current Visit: No (5) Hypertension SNOMED Code(s): 36002013 ICD Code: I10 - ESSENTIAL (PRIMARY) HYPERTENSION Status: Chronic Current Visit: No (6) Parkinson disease SNOMED Code(s): 69750129 ICD Code: G20 - PARKINSON'S DISEASE Status: Chronic Current Visit: No (7) Primary osteoarthritis of both knees SNOMED Code(s): 603045763 ICD Code: M17.0 - BILATERAL PRIMARY OSTEOARTHRITIS OF KNEE Status: Chronic Current Visit: No Problem List Initiated/Reviewed/Updated: Yes Orders Last 24hrs: Active Orders 24 hr Category Date Time Status Patient Status [ADT] Routine ADT 07/03/19 17:06 Active Communication Order [RC] ASDIRECTED Care 07/03/19 17:10 Active Cooling Warming Measures [RC] ASDIRECTED Care 07/03/19 17:09 Active Height and Weight [RC] WEEKLY Care 07/03/19 17:06 Active Oxygen Therapy [RC] PRN Care 07/03/19 17:06 Active Up to Chair [RC] ASDIRECTED Care 07/03/19 17:06 Active VTE/DVT Education [RC] Per Unit Routine Care 07/03/19 17:06 Active Vital Signs [RC] PER UNIT ROUTINE Care 07/03/19 17:06 Active OT Evaluation and Treatment [CONS] Routine Cons 07/03/19 17:06 Active PT Evaluation and Treatment [CONS] Routine Cons 07/03/19 17:06 Active Regular Diet [DIET] Diet 07/03/19 Dinner Active Acetaminophen [Tylenol] Med 07/03/19 17:08 Ordered 650 mg PO Q4H PRN Aspirin [Halfprin] Med 07/04/19 09:00 Ordered 81 mg PO DAILY Carbidopa/Levodopa [Sinemet 25-100 mg] Med 07/03/19 21:00 Ordered 3 tab PO BID Cetirizine HCl [Zyrtec] Med 07/04/19 09:00 Ordered 10 mg PO DAILY Cholecalciferol (Vitamin D3) [Vitamin D3] Med 07/04/19 09:00 Ordered 1 tab PO DAILY Docusate Sodium [Colace] Med 07/04/19 09:00 Ordered DOSE mg PO DAILY Losartan [Cozaar] Med 07/04/19 09:00 Ordered 100 mg PO DAILY Multivitamins [Tab-A-Taylor] Med 07/04/19 09:00 Ordered DOSE tab PO DAILY [place]-3/DHA/Epa/Fish Oil [[place]-3 Fish Oil 1,000 MG Med 07/04/19 09:00 Ordered Sfgl] 1 cap PO DAILY Tamsulosin [Flomax] Med 07/04/19 09:00 Ordered 0.4 mg PO DAILY polyethylene glycoL 3350 [MiraLAX] Med 07/04/19 09:00 Ordered 17 gm PO DAILY Antiembolic Hose [OM.PC] Per Unit Routine Oth 07/03/19 17:07 Ordered Heat Therapy [OM.PC] Routine Oth 07/03/19 17:09 Ordered Resuscitation Status Routine Resus Stat 07/03/19 17:06 Ordered Medication Orders Acetaminophen (Tylenol) 650 mg PO Q4H PRN PRN Reason: analgesia/fever Aspirin (Halfprin) 81 mg PO DAILY [facility] Carbidopa/Levodopa (Sinemet 25-100 Mg) 3 tab PO BID [facility] Docusate Sodium (Colace) mg PO DAILY [facility] Losartan Potassium (Cozaar) 100 mg PO DAILY [facility] Multivitamins/Minerals/Vitamin C (Tab-A-Taylor) tab PO DAILY [facility] Non-Formulary Medication (Cetirizine Hcl [Zyrtec]) 10 mg PO DAILY [facility] Non-Formulary Medication (Cholecalciferol (Vitamin D3) [Vitamin D3]) 1 tab PO DAILY [facility] Non-Formulary Medication ([place]-3/Dha/Epa/Fish Oil [[place]-3 Fish Oil 1,000 Mg Sfgl]) 1 cap PO DAILY [facility] Polyethylene Glycol (Miralax) 17 gm PO DAILY [facility] Tamsulosin HCl (Flomax) 0.4 mg PO DAILY [facility] Assessment/Plan Comment:: 1. Admit to Swingbed for PT/OT for strengthening. 2. Resume home medications. 3. Regular diet. 4. Discharge plan: to go to [facility] with outpatient rehab. - Mortality Measure Prognosis:: Good
[2019-07-03] MEDS ORDERED: Carbidopa/Levodopa 25-100 MG Tab PO SCH (21:00)
[2019-07-04] MEDS: Polyethylene Glycol 3350 Powder 17 GM Packet PO SCH (08:34)
[2019-07-04] MEDS: Tamsulosin 0.4 MG Cap.ER PO SCH (08:34)
[2019-07-04] MEDS: Losartan 100 MG Tab PO SCH (08:34)
[2019-07-04] MEDS: Aspirin 81 MG Tab.EC PO SCH (08:34)
[2019-07-04] MEDS: Docusate Sodium 100 MG Cap PO SCH (08:34)
[2019-07-04] MEDS: Multivitamin Tab PO SCH (08:35)
[2019-07-04] MEDS ORDERED: Cetirizine 10 MG Tab PO SCH (09:00)
[2019-07-04] MEDS: Cholecalciferol (Vitamin D3) 25 MCG Tab PO SCH (09:35)
[2019-07-04] MEDS: Fish Oil/Omega-3 Fatty Acids 1 Gm Cap PO SCH (09:38)
[2019-07-04] MEDS ORDERED: Carbidopa/Levodopa 25-100 MG Tab PO SCH (10:00)
[2019-07-04] MEDS: Carbidopa/Levodopa 25-100 MG Tab PO SCH (20:11)
[2019-07-05] MEDS ORDERED: Sodium Phosphate,Monobasic/Sodium Phosphate,Dibasic Enema 133 ML Bottle RECTAL ONE (07:33)
[2019-07-05] MEDS ORDERED: Glycerin Adult 2.1 GM Supp RECTAL PRN (08:09)
[2019-07-05] MEDS: Losartan 100 MG Tab PO SCH (08:57)
[2019-07-05] MEDS: Multivitamin Tab PO SCH (08:57)
[2019-07-05] MEDS: Docusate Sodium 100 MG Cap PO SCH (08:57)
[2019-07-05] MEDS: Aspirin 81 MG Tab.EC PO SCH (08:57)
[2019-07-05] MEDS: Tamsulosin 0.4 MG Cap.ER PO SCH (08:57)
[2019-07-05] MEDS: Cholecalciferol (Vitamin D3) 25 MCG Tab PO SCH (08:57)
[2019-07-05] MEDS: Fish Oil/Omega-3 Fatty Acids 1 Gm Cap PO SCH (08:57)
[2019-07-05] MEDS: Acetaminophen 325 MG Tab PO PRN ×2 (08:58→20:03)
[2019-07-05] MEDS: Polyethylene Glycol 3350 Powder 17 GM Packet PO SCH (08:59)
[2019-07-05] MEDS: Carbidopa/Levodopa 25-100 MG Tab PO SCH ×3 (10:11→19:59)
[2019-07-05] MEDS: Cetirizine 10 MG Tab PO SCH (19:59)
[2019-07-06] MEDS: Aspirin 81 MG Tab.EC PO SCH (08:20)
[2019-07-06] MEDS: Polyethylene Glycol 3350 Powder 17 GM Packet PO SCH (08:20)
[2019-07-06] MEDS: Cholecalciferol (Vitamin D3) 25 MCG Tab PO SCH (08:20)
[2019-07-06] MEDS: Fish Oil/Omega-3 Fatty Acids 1 Gm Cap PO SCH (08:21)
[2019-07-06] MEDS: Tamsulosin 0.4 MG Cap.ER PO SCH (08:21)
[2019-07-06] MEDS: Multivitamin Tab PO SCH (08:21)
[2019-07-06] MEDS: Losartan 100 MG Tab PO SCH (08:21)
[2019-07-06] MEDS: Docusate Sodium 100 MG Cap PO SCH (08:21)
[2019-07-06] MEDS: Carbidopa/Levodopa 25-100 MG Tab PO SCH ×3 (10:13→19:59)
[2019-07-06] MEDS: Acetaminophen 325 MG Tab PO PRN (19:49)
[2019-07-06] MEDS: Cetirizine 10 MG Tab PO SCH (19:59)
[2019-07-07] MEDS: Acetaminophen 325 MG Tab PO PRN ×3 (02:11→20:00)
[2019-07-07] MEDS: Docusate Sodium 100 MG Cap PO SCH (08:14)
[2019-07-07] MEDS: Losartan 100 MG Tab PO SCH (08:14)
[2019-07-07] MEDS: Aspirin 81 MG Tab.EC PO SCH (08:15)
[2019-07-07] MEDS: Multivitamin Tab PO SCH (08:15)
[2019-07-07] MEDS: Tamsulosin 0.4 MG Cap.ER PO SCH (08:15)
[2019-07-07] MEDS: Fish Oil/Omega-3 Fatty Acids 1 Gm Cap PO SCH (08:15)
[2019-07-07] MEDS: Cholecalciferol (Vitamin D3) 25 MCG Tab PO SCH (08:16)
[2019-07-07] MEDS: Polyethylene Glycol 3350 Powder 17 GM Packet PO SCH (08:27)
[2019-07-07] MEDS: Carbidopa/Levodopa 25-100 MG Tab PO SCH ×3 (10:12→20:00)
[2019-07-07] MEDS: Melatonin 3 MG Tab PO PRN (20:00)
[2019-07-07] MEDS: Cetirizine 10 MG Tab PO SCH (20:00)
[2019-07-08] MEDS: Losartan 100 MG Tab PO SCH (09:27)
[2019-07-08] MEDS: Fish Oil/Omega-3 Fatty Acids 1 Gm Cap PO SCH (09:27)
[2019-07-08] MEDS: Docusate Sodium 100 MG Cap PO SCH (09:27)
[2019-07-08] MEDS: Polyethylene Glycol 3350 Powder 17 GM Packet PO SCH (09:28)
[2019-07-08] MEDS: Multivitamin Tab PO SCH (09:28)
[2019-07-08] MEDS: Tamsulosin 0.4 MG Cap.ER PO SCH (09:28)
[2019-07-08] MEDS: Aspirin 81 MG Tab.EC PO SCH (09:28)
[2019-07-08] MEDS: Cholecalciferol (Vitamin D3) 25 MCG Tab PO SCH (09:28)
[2019-07-08] MEDS: Carbidopa/Levodopa 25-100 MG Tab PO SCH ×3 (09:29→20:13)
[2019-07-08] MEDS: Cetirizine 10 MG Tab PO SCH (20:13)
[2019-07-08] MEDS: Acetaminophen 325 MG Tab PO PRN (20:13)
[2019-07-08] MEDS: Melatonin 3 MG Tab PO PRN (20:14)
[2019-07-09] MEDS: Losartan 100 MG Tab PO SCH (08:49)
[2019-07-09] MEDS: Fish Oil/Omega-3 Fatty Acids 1 Gm Cap PO SCH (08:49)
[2019-07-09] MEDS: Docusate Sodium 100 MG Cap PO SCH (08:49)
[2019-07-09] MEDS: Polyethylene Glycol 3350 Powder 17 GM Packet PO SCH (08:50)
[2019-07-09] MEDS: Aspirin 81 MG Tab.EC PO SCH (08:50)
[2019-07-09] MEDS: Cholecalciferol (Vitamin D3) 25 MCG Tab PO SCH (08:50)
[2019-07-09] MEDS: Multivitamin Tab PO SCH (08:50)
[2019-07-09] MEDS: Tamsulosin 0.4 MG Cap.ER PO SCH (08:50)
[2019-07-09] MEDS: Carbidopa/Levodopa 25-100 MG Tab PO SCH ×3 (09:30→20:10)
[2019-07-09] MEDS ORDERED: QUEtiapine 25 MG Tab PO ONE (17:32)
[2019-07-09] MEDS: Cetirizine 10 MG Tab PO SCH (20:10)
[2019-07-09] MEDS ORDERED: QUEtiapine 25 MG Tab ONE (20:11)
--- NOTE | 2019-07-10 08:24 | PN ---
DATE SEEN: 07/09/2019 REASON FOR VISIT: Agitation. HISTORY OF PRESENT ILLNESS: This is an 89-year-old male who is here for rehab in swing bed. He has had falling problems, Parkinson's, and is currently undergoing physical therapy and occupational therapy. Over the last few days, he has been noted to be agitated and confused at times, more so in the evenings, and I was called to the bedside because he is markedly confused, wanting to get out of bed, agitated. He is not able to give much history. PAST MEDICAL HISTORY: Osteoarthritis of both knees, hypertension, constipation, Parkinson's disease, physical deconditioning. MEDICATIONS: Reviewed. PHYSICAL EXAMINATION: VITAL SIGNS: His blood pressure is normal, pulse 108, and temperature 98.4. MENTAL STATUS: He is alert, but disoriented. NEUROLOGIC: Normal, except he has tremors and rigidity. CHEST: Clear. LABORATORY DATA: No new labs. IMPRESSION: 1. Parkinson's disease. 2. Agitation. PLAN: I will try Seroquel 25 mg x1 dose tonight. Continue physical therapy tomorrow. I believe there is a plan in place for placement, to continue skilled care. /[id number] RACHAEL/WYATT
--- NOTE | 2019-07-10 10:41 | CR ---
INDICATION: Cough. CHEST, ONE VIEW: Portable AP upright view of the chest, 06/11/2019 was compared with 05/09/2013. The heart appears slightly increased in size allowing for the AP positioning. There appears to be some infiltrate and possibly minimal effusion with blunting of the left costophrenic angle suggesting a minimal patchy pneumonia and pleuritis at the left lower lobe. No other acute process was suggested. The aorta is tortuous with calcification in the arch. IMPRESSION: 1. Pleuroparenchymal change at the left lower lobe of the lung suggesting pneumonia and pleuritis - correlate clinically. 2. ASHD. MTDD
[2019-07-10] MEDS ORDERED: Acetaminophen 650 MG Supp RECTAL PRN (13:17)
--- NOTE | 2019-07-10 13:55 | DISCH ---
DISCHARGE DATE: 07/10/2019 REASON FOR ADMISSION: 1. Parkinson disease. 2. Generalized weakness. 3. Frequent falls. 4. Osteoarthritis of both knees. 5. Hypertension. DISCHARGE DIAGNOSES: 1. Delirium. 2. Pneumonia, possibly aspiration. 3. Parkinson disease. BRIEF HISTORY: This 89-year-old male was admitted to swing bed for rehab, but over the last 2 days was noted to be lethargic and febrile along with a cough. Chest x-ray showed bilateral parenchymal changes suggestive of pneumonia, and he has been admitted to acute care for further investigation and treatment. I spent less than 30 minutes in the discharge of the patient. /[id number] RACHAEL/WYATT
[2019-07-10] MEDS: Fish Oil/Omega-3 Fatty Acids 1 Gm Cap PO SCH (15:47)
[2019-07-10] MEDS: Losartan 100 MG Tab PO SCH (15:47)
[2019-07-10] MEDS: Aspirin 81 MG Tab.EC PO SCH (15:47)
[2019-07-10] MEDS: Polyethylene Glycol 3350 Powder 17 GM Packet PO SCH (15:47)
[2019-07-10] MEDS: Docusate Sodium 100 MG Cap PO SCH (15:47)
[2019-07-10] MEDS: Tamsulosin 0.4 MG Cap.ER PO SCH (15:47)
[2019-07-10] MEDS: Multivitamin Tab PO SCH (15:48)
[2019-07-10] MEDS: Carbidopa/Levodopa 25-100 MG Tab PO SCH (15:48)
[2019-07-10] MEDS: Cholecalciferol (Vitamin D3) 25 MCG Tab PO SCH (15:48)
[2019-07-12] MEDS ORDERED: Iopamidol 755 Mg/ML 75 ML Bottle IV ONE (17:53)
== END 2019-07-10 13:17 | disposition critical access hospital (66) | DRG 947 ==
LOC: FB.MS 16:00
PROVIDERS: ADMIT Family Medicine; ATTEND Family Medicine
DX: R53.81 Other malaise (principal); J69.0 Pneumonitis due to inhalation of food and vomit; G20 Parkinson's disease; M17.0 Bilateral primary osteoarthritis of knee; I10 Essential (primary) hypertension; I25.10 Atherosclerotic heart disease of native coronary artery without angina pectoris; K21.9 Gastro-esophageal reflux disease without esophagitis; S39.012A Strain of muscle, fascia and tendon of lower back, initial encounter; K59.09 Other constipation; Z87.442 Personal history of urinary calculi; Z79.82 Long term (current) use of aspirin; Z79.899 Other long term (current) drug therapy; Z98.49 Cataract extraction status, unspecified eye; W19.XXXA Unspecified fall, initial encounter; Y92.009 Unspecified place in unspecified non-institutional (private) residence as the place of occurrence of the external cause
CPT/HCPCS: 36415; 71045; 80048; 81001; 85025; 86140; 87804; 87804-59; 97110-GO; 97110-GP; 97116-GP; 97530-GO; 97530-GP; 97535-GO; A9270-GY

== ENCOUNTER 2019-07-10 13:15 | Inpatient (IN) | payer MEDICARE, BC ==
[2019-07-10] MEDS ORDERED: Acetaminophen 325 MG Tab PO PRN ×2 (13:39→19:39)
[2019-07-10] MEDS ORDERED: Ampicillin/Sulbactam Na 1.5 GM in Sodium Chloride 0.9% 50 ML IV SCH (14:00)
[2019-07-10] MEDS ORDERED: Levofloxacin/Dextrose 5%-Water 750 MG in Premix Bag 1 BAG IV ONE (14:15)
[2019-07-10] MEDS: Sodium Chloride 0.9% 1,000 ML IV SCH (14:46)
[2019-07-10] MEDS: Ampicillin/Sulbactam Na 3 GM in Sodium Chloride 0.9% 100 ML IV SCH ×2 (17:20→22:04)
--- NOTE | 2019-07-10 19:39 | PCM.HP.2 ---
H&P History of Present Illness - General Date of Service: 07/10/19 Admit Problem/Dx: Admission Diagnosis/Problem Admission Diagnosis/Problem Pneumonia Source of Information: Patient, Family, Old Records, Provider History Limitations: Reports: No Limitations, Altered Mental Status - History of Present Illness Initial Comments - Free Text/Narative: Bandar is a 89yo male who has been on Swing Bed for Therapy due to weakness,and physical deconditioning secondary to Parkinson/'s disease. He present with a cough and fever of 1 day duration. He also had been somewhat agitated and confused. Temp recorded at 102.5. Bandar has a h/o HTN,esophageal spasm,and chronic fatigue. A CXR done revealed bibasilar pneumonia. - Related Data Allergies/Adverse Reactions: Allergies Allergy/AdvReac Type Severity Reaction Status Date / Time erythromycin base Allergy Nausea and Verified 07/01/19 12:01 [Erythromycin Base] Vomiting Home Medications: Home Meds Tamsulosin [Flomax] 0.4 mg PO DAILY 05/09/13 [History] Aspirin [Halfprin] 81 mg PO DAILY 07/01/19 [History] Carbidopa/Levodopa [Sinemet 25-100 mg Tablet] 3 tab PO BID 07/01/19 [History] Cetirizine HCl [Zyrtec] 10 mg PO DAILY 07/01/19 [History] Cholecalciferol (Vitamin D3) [Vitamin D3] 1 tab PO DAILY 07/01/19 [History] Docusate Sodium 1 cap PO DAILY 07/01/19 [History] Losartan Potassium 100 mg PO DAILY 07/01/19 [History] Multivitamin [One Daily Multivitamin] 1 each PO DAILY 07/01/19 [History] [place]-3/DHA/Epa/Fish Oil [[place]-3 Fish Oil 1,000 MG Sfgl] 1 cap PO DAILY [History] polyethylene glycoL 3350 [MiraLAX] 17 gm PO DAILY 07/01/19 [History] Acetaminophen [Tylenol] 650 mg PO Q4H PRN tablet 07/03/19 [Rx] Past Medical History HEENT History: Reports: Macular Degeneration Cardiovascular History: Reports: CAD, Hypertension, SOB on Exertion Respiratory History: Reports: SOB Gastrointestinal History: Reports: Chronic Constipation, GERD Genitourinary History: Reports: BPH, Prostate Disorder, Renal Calculus Musculoskeletal History: Reports: Arthritis Neurological History: Reports: Parkinson's Psychiatric History: Reports: None Endocrine/Metabolic History: Reports: None Hematologic History: Reports: None Dermatologic History: Reports: None - Infectious Disease History Infectious Disease History: Reports: Mumps, Shingles - Past Surgical History HEENT Surgical History: Reports: Cataract Surgery, Tonsillectomy Cardiovascular Surgical History: Reports: None Respiratory Surgical History: Reports: None GI Surgical History: Reports: Colonoscopy, Hernia, Inguinal Male Surgical History: Reports: Renal Calculus Endocrine Surgical History: Reports: None Neurological Surgical History: Reports: None Musculoskeletal Surgical History: Reports: None Dermatological Surgical History: Reports: None Social & Family History - Family History Family Medical History: Noncontributory - Caffeine Use Caffeine Use: Reports: Coffee, Soda H&P Review of Systems - Review of Systems: Review Of Systems: Comprehensive ROS is negative, except as noted in HPI. Exam - Exam Exam: See Below - Vital Signs Vital Signs: Last Vital Signs Temp 99.8 F 07/10/19 18:51 Pulse 86 07/10/19 16:00 Resp 24 H 07/10/19 16:00 BP 134/80 07/10/19 16:00 Pulse Ox 95 07/10/19 16:00 Weight: 76.912 kg - Exam General: Alert, Cooperative, Lethargic. No: Oriented HEENT: PERRLA, Other Lungs: Crackles, Rales Cardiovascular: Regular Rate GI/Abdominal Exam: Normal Bowel Sounds, Soft, Non-Tender (Male) Exam: Deferred Rectal (Males) Exam: Deferred Back Exam: Normal Inspection Extremities: Normal Inspection Skin: Warm, Dry Neurological: Cranial Nerves Intact Neuro Extensive - Mental Status: Alert, Slow Response to Commands. No: Oriented x3, Normal Mood/Affect Psychiatric: Alert, Depressed Sepsis Event Note - Focused Exam Vital Signs: Vital Signs Temp Temp Pulse Resp BP Pulse Ox 07/10/19 18:51 99.8 F 07/10/19 16:00 100.8 F H 86 24 H 134/80 95 07/10/19 13:39 102.8 F H 88 24 H 130/76 92 L Date Exam was Performed: 07/10/19 Time Exam was Performed: 19:33 - Problem List (1) Hospital-acquired pneumonia SNOMED Code(s): 807418335 ICD Code: J18.9 - PNEUMONIA, UNSPECIFIED ORGANISM; Y95 - NOSOCOMIAL CONDITION Status: Acute Current Visit: Yes (2) Frequent falls SNOMED Code(s): 920563964 ICD Code: R29.6 - REPEATED FALLS Status: Acute Current Visit: Yes (3) Delirium SNOMED Code(s): 5231040 ICD Code: R41.0 - DISORIENTATION, UNSPECIFIED Status: Acute Current Visit : Yes (4) BPH (benign prostatic hyperplasia) SNOMED Code(s): 503082058 ICD Code: N40.0 - BENIGN PROSTATIC HYPERPLASIA WITHOUT LOWER URINRY TRACT SYMP Status: Chronic Current Visit: No Qualifiers: Lower urinary tract symptom presence: symptoms present (5) Constipation SNOMED Code(s): 43734103 ICD Code: K59.00 - CONSTIPATION, UNSPECIFIED Status: Chronic Current Visit: No Qualifiers: Constipation type: unspecified constipation type Qualified Code(s): K59.00 - Constipation, unspecified (6) Esophageal spasm SNOMED Code(s): 771500088 ICD Code: K22.4 - DYSKINESIA OF ESOPHAGUS Status: Chronic Current Visit: No (7) Hypertension SNOMED Code(s): 53784725 ICD Code: I10 - ESSENTIAL (PRIMARY) HYPERTENSION Status: Chronic Current Visit: No Qualifiers: Hypertension type: essential hypertension Qualified Code(s): I10 - Essential (primary) hypertension (8) Parkinson disease SNOMED Code(s): 14743898 ICD Code: G20 - PARKINSON'S DISEASE Status: Chronic Current Visit: No (9) Physical deconditioning SNOMED Code(s): 48107738360798 ICD Code: R53.81 - OTHER MALAISE Status: Chronic Current Visit: No Problem List Initiated/Reviewed/Updated: Yes Orders Last 24hrs: Active Orders 24 hr Category Date Time Status Patient Status [ADT] Routine ADT 07/10/19 13:39 Active Height and Weight [RC] DAILY Care 07/10/19 13:39 Active Intake and Output [RC] 06,14,22 Care 07/10/19 13:40 Active Oxygen Therapy [RC] PRN Care 07/10/19 13:39 Active Up With Assistance [RC] ASDIRECTED Care 07/10/19 13:39 Active VTE/DVT Education [RC] Per Unit Routine Care 07/10/19 13:39 Active Vital Signs [RC] Q4H Care 07/10/19 13:39 Active Nothing per Oral After Midnight Diet [DIET] Diet 07/10/19 Breakfast Active BASIC METABOLIC PANEL,BMP [CHEM] AM Lab 07/11/19 05:11 Ordered CBC WITH AUTO DIFF [HEME] AM Lab 07/11/19 05:11 Ordered CULTURE BLOOD [BC] Urgent Lab 07/10/19 14:15 Received CULTURE BLOOD [BC] Urgent Lab 07/10/19 14:20 Received Acetaminophen [Tylenol] Med 07/10/19 13:39 Active 650 mg PO Q4H PRN Ampicillin/Sulbactam Na [Unasyn] 3 gm Med 07/10/19 16:00 Active Sodium Chloride 0.9% [Normal Saline] 100 ml IV Q6H Sodium Chloride 0.9% [Normal Saline] 1,000 ml Med 07/10/19 13:45 Active IV ASDIRECTED Sodium Chloride 0.9% [Saline Flush] Med 07/10/19 13:39 Active 10 ml FLUSH ASDIRECTED PRN Blood Culture x2 Reflex Set [OM.PC] Urgent Oth 07/10/19 13:39 Ordered Peripheral IV Insertion Adult [OM.PC] Routine Oth 07/10/19 13:39 Ordered Resuscitation Status Routine Resus Stat 07/10/19 13:39 Ordered Medication Orders Acetaminophen (Tylenol) 650 mg PO Q4H PRN PRN Reason: Pain (Mild 1-3)/fever Sodium Chloride (Normal Saline) 1,000 mls @ 125 mls/hr IV ASDIRECTED [facility] Last Admin: 07/10/19 14:46 Dose: 125 mls/hr Ampicillin Sodium/Sulbactam (Sodium 3 gm/ Sodium Chloride) 100 mls @ 100 mls/ hr IV Q6H [facility] Last Admin: 07/10/19 17:20 Dose: 100 mls/hr Sodium Chloride (Saline Flush) 10 ml FLUSH ASDIRECTED PRN PRN Reason: Keep Vein Open Assessment/Plan Comment:: I will start him on Unasyn and Levaquin. IV fluids due to low oral intake. Obtain blood cultures,a nasal panel including Influenza and COVID-19.
[2019-07-10] MEDS ORDERED: Carbidopa/Levodopa 25-100 MG Tab PO SCH (21:00)
[2019-07-11] MEDS: Sodium Chloride 0.9% 1,000 ML IV SCH ×3 (01:19→21:30)
[2019-07-11] MEDS: Sodium Chloride 0.9% 10 ML Syringe FLUSH PRN ×3 (04:00→17:25)
[2019-07-11] MEDS: Ampicillin/Sulbactam Na 3 GM in Sodium Chloride 0.9% 100 ML IV SCH ×4 (04:23→22:10)
[2019-07-11] MEDS: Tamsulosin 0.4 MG Cap.ER PO SCH (08:44)
[2019-07-11] MEDS: Docusate Sodium 100 MG Cap PO SCH (08:44)
[2019-07-11] MEDS: Aspirin 81 MG Tab.EC PO SCH (08:44)
[2019-07-11] MEDS: Carbidopa/Levodopa 25-100 MG Tab PO SCH ×2 (10:20→21:35)
--- NOTE | 2019-07-11 11:17 | PN ---
DATE SEEN: 07/11/2019 SUBJECTIVE: Jamel Edmond is an 89-year-old male, admitted to acute care on 07/09. He had been in swing bed for deconditioning and progressive concerns about his Parkinson disease. He spiked 102 fever, chills, sweats, headache; was admitted for observation. Radiographs by report revealed bibasilar bilateral pneumonia. Seen today in followup. Feeling much better. Less short of breath. Oxygen in place. Blood culture x2 negative as of this morning. Oxygen therapy in place. LABORATORY STUDIES: On 07/10; white count 8800, hemoglobin 12.6, hematocrit 37.8. Electrolytes satisfactory. Creatinine 1.2. GFR 57, glucose 134, calcium 7.6. Repeat calcium to be performed. OBJECTIVE: VITAL SIGNS: 36.6, pulse of 90, 100/60, mean blood pressure 73, 20 of respirations, 92% on 2 L. GENERAL: Appears comfortable. Speech was fluent. Parkinsonian posturing. NECK: Benign. Thyroid small. CHEST: Clear in all lung grayson. No adventitious sounds. HEART: No ectopy or murmur. ABDOMEN: Benign. IMPRESSION: 1. Bibasilar pneumonia. 2. Parkinson's. PLAN: We will continue antibiotics, Unasyn. We will add azithromycin. We will recheck his calcium. Follow cultures and well being. /[id number] BETSY/WYATT
[2019-07-11] MEDS: hydrOXYzine HCl 25 MG Tab PO SCH ×2 (16:53→22:53)
[2019-07-12] MEDS: Ampicillin/Sulbactam Na 3 GM in Sodium Chloride 0.9% 100 ML IV SCH ×4 (03:43→21:11)
[2019-07-12] MEDS: Sodium Chloride 0.9% 1,000 ML IV SCH ×2 (06:57→17:11)
[2019-07-12] MEDS: hydrOXYzine HCl 25 MG Tab PO SCH (08:28)
[2019-07-12] MEDS: Docusate Sodium 100 MG Cap PO SCH (08:29)
[2019-07-12] MEDS: Tamsulosin 0.4 MG Cap.ER PO SCH (08:29)
[2019-07-12] MEDS: Aspirin 81 MG Tab.EC PO SCH (08:29)
[2019-07-12] MEDS: Carbidopa/Levodopa 25-100 MG Tab PO SCH ×2 (09:42→20:03)
[2019-07-12] MEDS ORDERED: Scopolamine 1.5 MG Transdermal Patch TRDERM SCH (14:30)
[2019-07-12] MEDS ORDERED: Iopamidol 755 Mg/ML 100 ML Bottle IV ONE (18:50)
[2019-07-12] MEDS: LORazepam 0.5 MG Tab PO PRN (19:34)
[2019-07-13] MEDS: Ampicillin/Sulbactam Na 3 GM in Sodium Chloride 0.9% 100 ML IV SCH ×4 (04:10→21:21)
[2019-07-13] MEDS: Aspirin 81 MG Tab.EC PO SCH (09:24)
[2019-07-13] MEDS: Carbidopa/Levodopa 25-100 MG Tab PO SCH ×2 (09:24→20:30)
[2019-07-13] MEDS: Docusate Sodium 100 MG Cap PO SCH (09:24)
[2019-07-13] MEDS: Tamsulosin 0.4 MG Cap.ER PO SCH (09:24)
[2019-07-13] MEDS: Sodium Chloride 0.9% 1,000 ML IV SCH (13:33)
[2019-07-13] MEDS: LORazepam 0.5 MG Tab PO PRN (18:59)
[2019-07-14] MEDS: Ampicillin/Sulbactam Na 3 GM in Sodium Chloride 0.9% 100 ML IV SCH ×2 (03:35→11:20)
[2019-07-14] MEDS: LORazepam 0.5 MG Tab PO PRN (06:47)
--- NOTE | 2019-07-14 08:01 | PN ---
DATE SEEN: 07/12/2019 SUBJECTIVE: Jamel Edmond is an 89-year-old male admitted from swing bed to acute care with complicated pneumonia. Complicated fever, chills, sweats, systemically appears well. Respiratory-hadley, things have improved. Presently on appropriate antibiotic therapy. Blood culture times 2 negative. Influenza A and B negative. COVID testing pending. In the interval since yesterday, he had a witnessed seizure, duration uncertain, with some postictal issues. Has had some agitation, undesirable behaviors, some verbal miscues on his part. Vistaril was provided yesterday with untoward, not helpful effects. More awake and appropriate today. LABORATORY STUDIES: Repeat calcium 7.6. OBJECTIVE: VITAL SIGNS: 36.9, 97 is the pulse, 156/92, 18, and 94% on room air. GENERAL: Not aware of his environment completely, though responded to some questions appropriately. NECK: Benign. Thyroid small. No JVD. CHEST: Decreased breath sounds but not a good respiratory effort. HEART: Distant heart sounds. Soft murmur. ABDOMEN: Benign. ASSESSMENT: Bilateral pneumonia. PLAN: We will continue IV antibiotics, cooperative care, and well-being. CT head with and without contrast upcoming and planned. Respiratory precautions to be continued. /[id number] BETSY/WYATT
--- NOTE | 2019-07-14 08:06 | PN ---
DATE SEEN: 07/13/2019 SUBJECTIVE: Jamel Edmond is an 89-year-old male, had been swung from swing bed to acute bed for bilateral pneumonia. He has had a bit of an eventful course since that time. Pneumonia-related symptoms have improved. He had an unplanned seizure Sunday morning, no refractory complicating issue. CT scan of the brain revealed atrophy on my interpretation, no acute changes, with and without contrast, no enhancement. Agitation was better, ate reluctantly yesterday, had 1 dose of Ativan last night, better this morning. Followup x-ray will be performed. Spoke with son at length about code status. Outstanding studies, laboratory studies, blood cultures negative times day #3. OBJECTIVE: VITAL SIGNS: 81 kg, 166/94, 83, and 89 on no O2. GENERAL: Appeared comfortable. Speech was more fluid. Patient was brighter. NECK: Benign. Thyroid small. CHEST: Clear in all lung grayson. No adventitious sounds. HEART: No ectopy or murmur. ABDOMEN: Benign. ASSESSMENT: Pneumonia. PLAN: We will do followup x-ray, continue IV antibiotics, complementary care and well-being. /[id number] BETSY/WYATT
--- NOTE | 2019-07-14 10:14 | CR ---
INDICATION: Followup pneumonia. CHEST TWO VIEWS: AP and lateral views of the chest were obtained upright and compared with 07/10/19 and 05/09/13. Much more extensive infiltrates are now present in the left mid lung field and lung base, especially but also on the right in the mid lung field to lower lung field and lung base. Blunting of the posterior sulci and left costophrenic angle and to a slight extent right costophrenic angle is noted compatible with bilateral pneumonia and pleuritis. The heart remains normal in size, the aorta is tortuous with calcification in the arch and descending portion. A mild dextroconvex scoliosis of the mid thoracic spine is noted. IMPRESSION: Significantly more severe and extensive infiltration bilaterally compatible with pneumonia and pleuritis, significantly more severe on the left than right. MTDD
[2019-07-14] MEDS ORDERED: Levofloxacin 250 MG Tab PO SCH (10:15)
[2019-07-14] MEDS: Carbidopa/Levodopa 25-100 MG Tab PO SCH ×2 (10:37→20:00)
[2019-07-14] MEDS: Docusate Sodium 100 MG Cap PO SCH (10:37)
[2019-07-14] MEDS: Aspirin 81 MG Tab.EC PO SCH (10:38)
[2019-07-14] MEDS: Furosemide 20 MG Tab PO SCH (10:38)
[2019-07-14] MEDS: Tamsulosin 0.4 MG Cap.ER PO SCH (10:38)
[2019-07-14] MEDS: Levofloxacin 500 MG Tab PO SCH (10:38)
--- NOTE | 2019-07-14 11:16 | PN ---
DATE SEEN: 07/14/2019 SUBJECTIVE: Jamel Edmond is an 89-year-old male; admitted initially for rehab purposes, conditioning, and strengthening; had a readmission to acute care for pneumonia. Has made good progress. Continues to be difficult in terms of confusion and lack of interventional therapy. Plans are to have him go to the half-way. Radiographs from yesterday reveals some congestion but stability of pneumonia. His clinical status has been satisfactory. LABORATORY STUDIES: Blood culture still no growth after 3 days. OBJECTIVE: VITAL SIGNS: 36.5, 92 on room air, and respirations 20. GENERAL: Elderly gentleman, cooperative, conversation is limited. NECK: Benign. No JVD. Thyroid small. CHEST: On auscultation, clear all lung grayson anterior- posterior. HEART: On auscultation, no ectopy. Soft murmur. ABDOMEN: Benign. ASSESSMENT: Pneumonia. PLAN: Radiograph report to follow, was switched from IV to oral Levaquin 250 mg 1 daily for 7 days' duration. Transfer to half-way upcoming and planned as expected. /[id number] /WYATT
[2019-07-14] MEDS: Sodium Chloride 0.9% 1,000 ML IV SCH (13:03)
[2019-07-15] MEDS ORDERED: Tuberculin, PPD 5 Units/0.1 ML 1 ML MDV IDERM ONE (09:00)
[2019-07-15] MEDS: Docusate Sodium 100 MG Cap PO SCH (09:02)
[2019-07-15] MEDS: Furosemide 20 MG Tab PO SCH (09:02)
[2019-07-15] MEDS: Aspirin 81 MG Tab.EC PO SCH (09:02)
[2019-07-15] MEDS: Tamsulosin 0.4 MG Cap.ER PO SCH (09:02)
[2019-07-15] MEDS: Carbidopa/Levodopa 25-100 MG Tab PO SCH (09:51)
[2019-07-15] MEDS: Levofloxacin 500 MG Tab PO SCH (09:51)
--- NOTE | 2019-07-15 15:17 | DISCH ---
DISCHARGE DATE: 07/15/2019 DISCHARGE DIAGNOSIS: Bilateral pneumonia with hypoxia. HISTORY OF PRESENT ILLNESS: Jamel Edmond is an 89-year-old male who had been in swing bed for weakness, physical decline, and complications of Parkinson's. On the day of readmission to acute care, he presented with cough, 102 fever, markedly elevated white count, and a bibasilar pneumonia. Placed in the hospital for interval care and treatment. Exam, please see Dr. Ho's history and physical. LABORATORY STUDIES: Noted. White count 8800, repeat 5300; hemoglobin 12.6, 12.6. Electrolytes were satisfactory. No complicating issue. While in the hospital, he was on two-drug antibiotic therapy, ceftriaxone and azithromycin. He was maintained on IV antibiotics for 3 days' duration. Fever defervesced. Oxygenation and well-being improved. He was transferred to [facility] on 07/14/2019, did well. Problematic issue of course is his Parkinson's, increasing care level necessitating alf care. PHYSICAL EXAMINATION: At the time of discharge. VITAL SIGNS: 36.4, 76, 138/83, 16, and 94. Weight 73 kg. GENERAL: Appears comfortable. Speech is more fluent and less combative. HEENT: Mouth and oropharynx are clear. NECK: Benign. Thyroid small. CHEST: Clear in all lung grayson. HEART: No ectopy or murmur. ABDOMEN: Benign. No hepatosplenomegaly. NEUROLOGIC: Parkinsonian features. DISCHARGE DIAGNOSES: 1. Bibasilar pneumonia, improved. 2. Complicated Parkinson's. PLAN: Discharge to a local nursing, followup x-ray in 3 weeks' time. /[id number] BETSY/WYATT CC: [facility]
== END 2019-07-15 10:30 | disposition home or self-care (01) | DRG 195 ==
LOC: FB.MS 13:15
PROVIDERS: ADMIT Family Medicine; ATTEND Family Medicine
DX: J18.9 Pneumonia, unspecified organism (principal); G20 Parkinson's disease; I10 Essential (primary) hypertension; H35.30 Unspecified macular degeneration; I25.10 Atherosclerotic heart disease of native coronary artery without angina pectoris; K59.09 Other constipation; K21.9 Gastro-esophageal reflux disease without esophagitis; N40.0 Benign prostatic hyperplasia without lower urinary tract symptoms; M19.90 Unspecified osteoarthritis, unspecified site; Z79.82 Long term (current) use of aspirin; R29.6 Repeated falls; K22.4 Dyskinesia of esophagus
CPT/HCPCS: 36415; 70470; 71046; 80048; 82310; 85025; 85027; 86580; 87040; 94760; A9270-GY; J0295; J1956; J7030; J7050; Q9967

== ENCOUNTER 2019-12-31 13:11 | Emergency (ER) | payer MEDICARE, BC ==
--- NOTE | 2019-12-31 13:37 | EDM.PDOC ---
ED HPI GENERAL MEDICAL PROBLEM - General Chief Complaint: Neurological Problem Time Seen by Provider: 12/31/19 13:15 Source of Information: Reports: Patient History Limitations: Reports: No Limitations - History of Present Illness INITIAL COMMENTS - FREE TEXT/NARRATIVE: Patient presented to the ED to the ED because of left sided weakness. He was noticed at the half-way to be leaning on his left side. there is no recent trauma or injury except 2 month ago when he had a hip fracture from a fall. There is no headache, nausea,vomiting. There is no fever,chills,cough or cold symptoms. - Related Data Allergies Allergy/AdvReac Type Severity Reaction Status Date / Time erythromycin base Allergy Nausea and Verified 12/31/19 13:47 [Erythromycin Base] Vomiting Home Meds: Home Meds Tamsulosin [Flomax] 0.8 mg PO BEDTIME 05/09/13 [History] Carbidopa/Levodopa [Sinemet 25-100 mg Tablet] 3 tab PO BID 07/01/19 [History] Docusate Sodium 1 cap PO DAILY 07/01/19 [History] Losartan Potassium 100 mg PO DAILY 07/01/19 [History] Furosemide [Lasix] 20 mg PO DAILY #30 tablet 07/15/19 [Rx] Acetaminophen [Tylenol Extra Strength] 1,000 mg PO BID 12/31/19 [History] Acetaminophen [Tylenol Extra Strength] 1,000 mg PO BID PRN 12/31/19 [History] Bisacodyl [Laxative Suppository] 10 mg RECTAL Q3D PRN 12/31/19 [History] Cholecalciferol (Vitamin D3) [Vitamin D3] 3,000 unit PO DAILY 12/31/19 [History] Citalopram [Citalopram HBr] 10 mg PO DAILY 12/31/19 [History] Donepezil HCl 10 mg PO DAILY 12/31/19 [History] Loratadine 10 mg PO DAILY 12/31/19 [History] Magnesium Hydroxide [Milk of Magnesia] 30 ml PO DAILY PRN 12/31/19 [History] Melatonin 3 mg PO DAILY 12/31/19 [History] Past Medical History HEENT History: Reports: Macular Degeneration Cardiovascular History: Reports: CAD, Hypertension, SOB on Exertion Respiratory History: Reports: SOB Gastrointestinal History: Reports: Chronic Constipation, GERD Genitourinary History: Reports: BPH, Prostate Disorder, Renal Calculus Musculoskeletal History: Reports: Arthritis Neurological History: Reports: Parkinson's Psychiatric History: Reports: None Endocrine/Metabolic History: Reports: None Hematologic History: Reports: None Dermatologic History: Reports: None - Infectious Disease History Infectious Disease History: Reports: Mumps, Shingles - Past Surgical History HEENT Surgical History: Reports: Cataract Surgery, Tonsillectomy Cardiovascular Surgical History: Reports: None Respiratory Surgical History: Reports: None GI Surgical History: Reports: Colonoscopy, Hernia, Inguinal Male Surgical History: Reports: Renal Calculus Endocrine Surgical History: Reports: None Neurological Surgical History: Reports: None Musculoskeletal Surgical History: Reports: None Dermatological Surgical History: Reports: None Social & Family History - Family History Family Medical History: Noncontributory - Caffeine Use Caffeine Use: Reports: Coffee, Soda ED ROS GENERAL - Review of Systems Review Of Systems: See Below Constitutional: Reports: No Symptoms HEENT: Reports: No Symptoms, Vertigo Respiratory: Reports: No Symptoms Cardiovascular: Reports: No Symptoms Endocrine: Reports: No Symptoms GI/Abdominal: Reports: No Symptoms : Reports: No Symptoms Musculoskeletal: Reports: No Symptoms Skin: Reports: No Symptoms ED EXAM, NEURO - Physical Exam Exam: See Below Exam Limited By: No Limitations General Appearance: Alert Ears: Normal External Exam, Normal Canal, Hearing Grossly Normal Nose: Normal Inspection, Normal Mucosa Throat/Mouth: Normal Inspection, Normal Lips, Normal Teeth Head Exam: Atraumatic, Normocephalic Neck: Normal Inspection, Supple, Non-Tender, Full Range of Motion Respiratory/Chest: No Respiratory Distress, Lungs Clear, Normal Breath Sounds Cardiovascular: Normal Peripheral Pulses, Regular Rate, Rhythm, No Edema, No Gallop GI/Abdominal: Normal Bowel Sounds, Soft, Non-Tender, No Organomegaly Neurological: Alert, Normal Dorsiflexion, CN II-XII Intact, Oriented x 3, Ataxia (LLE wakness/RUE weakness) Back Exam: Normal Inspection, Full Range of Motion Extremities: Normal Inspection, Normal Range of Motion, Non-Tender Psychiatric: Normal Affect, Normal Mood Skin Exam: Warm, Dry, Intact, Normal Color Course - Vital Signs Text/Narrative:: Labs/EKG/Head CT was discussed with patient and his son Case discussed with Dr Yeung and Dr Osborne Code Status: DNR/DNI Last Recorded V/S: Last Vital Signs Temp 36.8 C 12/31/19 13:15 Pulse 66 12/31/19 13:15 Resp 16 12/31/19 13:15 BP 151/74 H 12/31/19 13:15 Pulse Ox 96 12/31/19 13:15 - Orders/Labs/Meds Orders: Active Orders 24 hr Category Date Time Status EKG Documentation Completion [RC] ASDIRECTED Care 12/31/19 13:16 Ordered Chest 1V Frontal [CR] Stat Exams 12/31/19 13:30 Ordered EKG 12 Lead [EK] Routine Ther 12/31/19 13:15 Ordered Labs: Laboratory Tests 12/31/19 12/31/19 12/31/19 Range/Units 13:25 13:25 13:25 WBC 6.0 (4.5-12.0) X10-3/uL RBC 4.00 L (4.30-5.75) x10(6)uL Hgb 12.2 L (13.5-17.8) g/dL Hct 36.6 (30.0-51.3) % MCV 91.5 (80-96) fL MCH 30.5 (27.7-33.6) pg MCHC 33.3 (32.2-35.4) g/dL RDW 13.9 (11.5-15.5) % Plt Count 185 (125-369) X10(3)uL MPV 6.6 L (7.4-10.4) fL Neut % (Auto) 71.5 (46-82) % Lymph % (Auto) 18.4 (13-37) % Johnson % (Auto) 6.2 (4-12) % Eos % (Auto) 3 (1.0-5.0) % Baso % (Auto) 1 (0-2) % Neut # (Auto) 4.3 (1.6-8.3) # Lymph # (Auto) 1.1 (0.6-5.0) # Johnson # (Auto) 0.4 (0.0-1.3) # Eos # (Auto) 0.2 (0.0-0.8) # Baso # (Auto) 0.0 (0.0-0.2) # PT 11.9 H (9.0-11.1) sec INR 1.11 (1.00-1.24) APTT 25.1 (24.4-33.2) SECONDS Sodium 141 (135-145) mmol/L Potassium 4.0 (3.5-5.3) mmol/L Chloride 105 (100-110) mmol/L Carbon Dioxide 30 (21-32) mmol/L BUN 23 H (7-18) mg/dL Creatinine 1.2 (0.70-1.30) mg/dL Est Cr Clr Drug Dosing TNP Estimated GFR (MDRD) 57 L (>60) BUN/Creatinine Ratio 19.2 (9-20) Glucose 163 H D (80-116) mg/dL Calcium 8.4 L (8.6-10.2) mg/dL Total Bilirubin 0.6 (0.1-1.3) mg/dL AST 14 D (5-25) IU/L ALT 7 L D (12-36) U/L Alkaline Phosphatase 82 (56-112) IU/L Troponin I (4.0-60.3) pg/mL Total Protein 6.4 (6.0-8.0) g/dL Albumin 3.1 L (3.2-4.6) g/dL Globulin 3.3 g/dL Albumin/Globulin Ratio 0.9 09/16/20 Range/Units 13:25 WBC (4.5-12.0) X10-3/uL RBC (4.30-5.75) x10(6)uL Hgb (13.5-17.8) g/dL Hct (30.0-51.3) % MCV (80-96) fL MCH (27.7-33.6) pg MCHC (32.2-35.4) g/dL RDW (11.5-15.5) % Plt Count (125-369) X10(3)uL MPV (7.4-10.4) fL Neut % (Auto) (46-82) % Lymph % (Auto) (13-37) % Johnson % (Auto) (4-12) % Eos % (Auto) (1.0-5.0) % Baso % (Auto) (0-2) % Neut # (Auto) (1.6-8.3) # Lymph # (Auto) (0.6-5.0) # Johnson # (Auto) (0.0-1.3) # Eos # (Auto) (0.0-0.8) # Baso # (Auto) (0.0-0.2) # PT (9.0-11.1) sec INR (1.00-1.24) APTT (24.4-33.2) SECONDS Sodium (135-145) mmol/L Potassium (3.5-5.3) mmol/L Chloride (100-110) mmol/L Carbon Dioxide (21-32) mmol/L BUN (7-18) mg/dL Creatinine (0.70-1.30) mg/dL Est Cr Clr Drug Dosing Estimated GFR (MDRD) (>60) BUN/Creatinine Ratio (9-20) Glucose (80-116) mg/dL Calcium (8.6-10.2) mg/dL Total Bilirubin (0.1-1.3) mg/dL AST (5-25) IU/L ALT (12-36) U/L Alkaline Phosphatase (56-112) IU/L Troponin I 13.1 (4.0-60.3) pg/mL Total Protein (6.0-8.0) g/dL Albumin (3.2-4.6) g/dL Globulin g/dL Albumin/Globulin Ratio Departure - Departure Time of Disposition: 13:20 Disposition: DC/Tfer to Acute Hospital 02 Condition: Good Clinical Impression: Subdural hematoma, Hemorrhagic stroke - Discharge Information Referrals: Jet Yeung MD [Primary Care Provider] - Forms: ED Department Discharge Sepsis Event Note (ED) - Focused Exam Vital Signs: Vital Signs Temp Pulse Resp BP Pulse Ox 12/31/19 13:15 36.8 C 66 16 151/74 H 96 - My Orders Last 24 Hours: My Active Orders 12/31/19 13:15 EKG 12 Lead [EK] Routine 12/31/19 13:16 EKG Documentation Completion [RC] ASDIRECTED 12/31/19 13:30 Chest 1V Frontal [CR] Stat - Assessment/Plan Last 24 Hours: My Active Orders 12/31/19 13:15 EKG 12 Lead [EK] Routine 12/31/19 13:16 EKG Documentation Completion [RC] ASDIRECTED 12/31/19 13:30 Chest 1V Frontal [CR] Stat
[2019-12-31] MEDS ORDERED: Sodium Chloride 0.9% 10 ML Syringe FLUSH PRN (14:10)
== END 2019-12-31 14:40 ==
LOC: FB.ED 13:11
DX: S06.5X9A Traumatic subdural hemorrhage with loss of consciousness of unspecified duration, initial encounter (principal); K21.9 Gastro-esophageal reflux disease without esophagitis; M19.90 Unspecified osteoarthritis, unspecified site; I10 Essential (primary) hypertension; I25.10 Atherosclerotic heart disease of native coronary artery without angina pectoris; X58.XXXA Exposure to other specified factors, initial encounter
CPT/HCPCS: 36415; 71045; 80053; 84484; 85025; 85610; 85730; 93005; 99285-25

== ENCOUNTER 2020-01-21 17:04 | Emergency (ER) | payer MEDICARE, BC ==
--- NOTE | 2020-01-21 19:43 | EDM.PDOC ---
ED HPI GENERAL MEDICAL PROBLEM - General Stated Complaint: FALL Time Seen by Provider: 01/21/20 17:10 Source of Information: Reports: Patient History Limitations: Reports: Other (dementia) - History of Present Illness INITIAL COMMENTS - FREE TEXT/NARRATIVE: c/o fall pt from [facility], has h/o freq falls/PD/dementia fell from w/c, hit head, no LOC was in w/c and "tipped over" per [facility] no RANDOLPH - Related Data Allergies Allergy/AdvReac Type Severity Reaction Status Date / Time erythromycin base Allergy Nausea and Verified 12/31/19 13:47 [Erythromycin Base] Vomiting Home Meds: Home Meds Tamsulosin [Flomax] 0.8 mg PO BEDTIME 05/09/13 [History] Carbidopa/Levodopa [Sinemet 25-100 mg Tablet] 3 tab PO BID 07/01/19 [History] Docusate Sodium 1 cap PO DAILY 07/01/19 [History] Losartan Potassium 100 mg PO DAILY 07/01/19 [History] Furosemide [Lasix] 20 mg PO DAILY #30 tablet 07/15/19 [Rx] Acetaminophen [Tylenol Extra Strength] 1,000 mg PO BID 12/31/19 [History] Acetaminophen [Tylenol Extra Strength] 1,000 mg PO BID PRN 12/31/19 [History] Bisacodyl [Laxative Suppository] 10 mg RECTAL Q3D PRN 12/31/19 [History] Cholecalciferol (Vitamin D3) [Vitamin D3] 3,000 unit PO DAILY 12/31/19 [History] Citalopram [Citalopram HBr] 10 mg PO DAILY 12/31/19 [History] Donepezil HCl 10 mg PO DAILY 12/31/19 [History] Loratadine 10 mg PO DAILY 12/31/19 [History] Magnesium Hydroxide [Milk of Magnesia] 30 ml PO DAILY PRN 12/31/19 [History] Melatonin 3 mg PO DAILY 12/31/19 [History] Past Medical History HEENT History: Reports: Macular Degeneration Cardiovascular History: Reports: CAD, Hypertension, SOB on Exertion Respiratory History: Reports: SOB Gastrointestinal History: Reports: Chronic Constipation, GERD Genitourinary History: Reports: BPH, Prostate Disorder, Renal Calculus Musculoskeletal History: Reports: Arthritis Neurological History: Reports: Parkinson's Psychiatric History: Reports: None Endocrine/Metabolic History: Reports: None Hematologic History: Reports: None Dermatologic History: Reports: None - Infectious Disease History Infectious Disease History: Reports: Mumps, Shingles - Past Surgical History HEENT Surgical History: Reports: Cataract Surgery, Tonsillectomy Cardiovascular Surgical History: Reports: None Respiratory Surgical History: Reports: None GI Surgical History: Reports: Colonoscopy, Hernia, Inguinal Male Surgical History: Reports: Renal Calculus Endocrine Surgical History: Reports: None Neurological Surgical History: Reports: None Musculoskeletal Surgical History: Reports: None Dermatological Surgical History: Reports: None Social & Family History - Family History Family Medical History: Noncontributory - Caffeine Use Caffeine Use: Reports: Coffee, Soda ED ROS GENERAL - Review of Systems Review Of Systems: See Below Constitutional: Reports: No Symptoms HEENT: Reports: No Symptoms Respiratory: Reports: Other (pain at left ribs) Cardiovascular: Reports: No Symptoms Endocrine: Reports: No Symptoms GI/Abdominal: Reports: No Symptoms : Reports: No Symptoms Musculoskeletal: Reports: No Symptoms Skin: Reports: No Symptoms Neurological: Reports: No Symptoms. Denies: Dizziness, Headache, Numbness, Trouble Speaking, Change in Speech Psychiatric: Reports: No Symptoms Hematologic/Lymphatic: Reports: No Symptoms Immunologic: Reports: No Symptoms ED EXAM, HEAD INJURY - Physical Exam Exam: See Below Exam Limited By: No Limitations General Appearance: Alert, WD/WN Head: Other (ecchymosis of 5 x 4 x 0.5 cm over L lateral eyebrow with a superficial 1 cm lac with 2 mm separation of edges but no active bleeding, no associated bony tenderness, face NT) Eyes: Bilateral Eye: EOMI, PERRL Ears: Normal External Exam Nose: Normal Inspection, Normal Mucousa, No Blood Throat/Mouth: Normal Inspection, Normal Lips, Normal Teeth, Normal Voice, No Airway Compromise Neck: Non-Tender, Full Range of Motion, Normal Alignment, Normal Inspection Respiratory: No Respiratory Distress, Lungs Clear, Normal Breath Sounds, No Accessory Muscle Use, Other (very tender at L ribs anteriorly in MCL) Cardiovascular: Regular Rate, Rhythm, No Edema, Other (2/6 JOHN at L sternal border) GI/Abdominal Exam: Soft, Non-Tender, No Distention, Other (no LUQ or L flank tender). No: Splenomegaly Back Exam: Normal Inspection, Full Range of Motion Extremities: Normal Inspection, Normal Range of Motion, Non-Tender, No Pedal Edema Neurologic: No Motor/Sensory Deficits, Alert, Normal Mood/Affect, Oriented x 3 - [place] Coma Score Best Eye Response ([place]): (4) Open Spontaneously Best Verbal Response ([place]): (5) Oriented Best Motor Response (Mario): (6) Obeys Commands [place] Total: 15 Course - Vital Signs Last Recorded V/S: Last Vital Signs Temp 36.6 C 01/21/20 17:04 Pulse 58 L 01/21/20 17:04 Resp 17 01/21/20 17:04 BP 164/70 H 01/21/20 17:04 Pulse Ox 100 01/21/20 17:04 - Orders/Labs/Meds Orders: Active Orders 24 hr Category Date Time Status Head wo Cont [CT] Stat Exams 01/21/20 17:17 Taken Ribs 2V w Chest Lt [CR] Stat Exams 01/21/20 17:20 Taken - Re-Assessments/Exams Free Text/Narrative Re-Assessment/Exam: 01/21/20 20:28 pt is not on ASA or other anticoagulant head CT without contrast d/w radiologist, pt has a resolving intraparenchymal hematoma from 3w ago on 12/30, now pt has a new occipital hematoma this was d/w son Neo who preferred neuro checks at [facility] rather than admission to [facility] here, son knows that pt can and should return at any time if he should deteriorate on prelim ED of ribs there is a slightly displaced anterior L 11th rib fx without pneumo, son aware that there will be pain for 6-8 weeks pt is at baseline neuro status, has dementia/PD, is quite pleasant, speaking in complete sentences, joking, can respond appropriately to most questions Departure - Departure Time of Disposition: 20:12 Disposition: DC/Tfer to [facility] 63 Condition: Good Clinical Impression: Intracranial hemorrhage following injury, Facial contusion, Superficial laceration of face, Left rib fracture - Discharge Information *PRESCRIPTION DRUG MONITORING PROGRAM REVIEWED*: Not Applicable *COPY OF PRESCRIPTION DRUG MONITORING REPORT IN PATIENT KIRAN: Not Applicable Instructions: Head Injury, Adult, Rib Fracture, Nonsutured Laceration Care Referrals: PCP,None [Primary Care Provider] - Additional Instructions: There is a 1.6 cm bleed at the right occipital lobe. While this will likely resolve over several weeks, there is a small possibility that it could get worse, in which case he would need to return to the Emergency Department. Do neuro checks every 4 hours for the next 48 hours. If he is developing new neuro problems (e.g., difficulty speaking, deterioration of cognition, worsening headache, nausea and vomiting), either call or return to the Emergency Department. He may otherwise continue his usual activities, including eating and drinking, although take fall precautions to prevent injury. The superficial laceration of his left eyebrow should heal without difficulty. May be left open to the air. He will have pain for 6-8 weeks over his left 11th rib, which is fractured. Use ice for 10 minutes every 1-2 hours as needed for pain, Give acetaminophen 500 mg 2 tabs 4 times a day for pain. Avoid sleeping or putting pressure on his left ribs on the front side. See his PCP in 2 days for further evaluation and instructions. Call your Physician or Return to Emergency Department if: * Your condition worsens in any way. * You develop fever greater than 100.4. * You have vomiting that does not stop with medications. * You have pain that is not controlled with medications. Sepsis Event Note (ED) - Focused Exam Vital Signs: Vital Signs Temp Pulse Resp BP Pulse Ox 01/21/20 17:04 36.6 C 58 L 17 164/70 H 100 - My Orders Last 24 Hours: My Active Orders 01/21/20 17:17 Head wo Cont [CT] Stat 01/21/20 17:20 Ribs 2V w Chest Lt [CR] Stat - Assessment/Plan Last 24 Hours: My Active Orders 01/21/20 17:17 Head wo Cont [CT] Stat 01/21/20 17:20 Ribs 2V w Chest Lt [CR] Stat
[2020-01-21] MEDS ORDERED: Acetaminophen 500 MG Tab PO ONE (20:37)
== END 2020-01-21 20:56 ==
LOC: FB.ED 17:04
DX: S06.300A Unspecified focal traumatic brain injury without loss of consciousness, initial encounter (principal); S22.32XA Fracture of one rib, left side, initial encounter for closed fracture; S01.112A Laceration without foreign body of left eyelid and periocular area, initial encounter; I25.10 Atherosclerotic heart disease of native coronary artery without angina pectoris; I10 Essential (primary) hypertension; N40.0 Benign prostatic hyperplasia without lower urinary tract symptoms; G20 Parkinson's disease; Z79.899 Other long term (current) drug therapy; Z88.1 Allergy status to other antibiotic agents; W22.8XXA Striking against or struck by other objects, initial encounter
CPT/HCPCS: 70450; 71101; 99285; A9270